=== PATIENT | female | born 1950 | race Caucasian/White ===

== ENCOUNTER 2019-08-21 13:01 | Inpatient (IN) | payer MEDICARE ==
[2019-08-21] MEDS ORDERED: Sodium Chloride 0.9% 10 ML Syringe FLUSH PRN (13:49)
[2019-08-21] MEDS ORDERED: HYDROmorphone 1 MG/ML Syringe IVPUSH ONE (13:50)
--- NOTE | 2019-08-21 13:54 | EDM.PDOC ---
ED HPI GENERAL MEDICAL PROBLEM - General Chief Complaint: Syncope Stated Complaint: [facility] Time Seen by Provider: 08/21/19 13:43 Source of Information: Reports: Patient, RN Notes Reviewed History Limitations: Reports: No Limitations - History of Present Illness INITIAL COMMENTS - FREE TEXT/NARRATIVE: 68-year-old female presents emergency department today via EMS services for increasing weakness and multiple falls she fell yesterday fell today she does have known history of pancreatic cancer undergoing chemotherapy usually gets chemotherapy every week unfortunately due to the current situation she has not had any chemotherapy for 3 weeks, complains of pain mainly low back pain no nausea no vomiting no difficulty breathing no chest pain, she is unsure of the 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 Pain Score (Numeric/FACES): 3 - Related Data Allergies Allergy/AdvReac Type Severity Reaction Status Date / Time No Known Allergies Allergy Verified 01/31/19 11:47 Home Meds: Home Meds Irinotecan HCl 500 mg IV ASDIRECTED 01/31/19 [History] Leucovorin Calcium 500 mg IJ ASDIRECTED 01/31/19 [History] Loperamide [Imodium AD] 2 mg PO ASDIRECTED 01/31/19 [History] Oxaliplatin [Eloxatin] 50 mg IV ASDIRECTED 01/31/19 [History] Prochlorperazine Maleate [Compazine] 10 mg PO QID PRN 01/31/19 [History] Apixaban [Eliquis] 5 mg PO BID 08/21/19 [History] Fluorouracil 5-Fu 1 dose IV ASDIRECTED 08/21/19 [History] Lipase/Protease/Amylase [Enzadyne Capsule] 1 each PO TID 08/21/19 [History] Metoclopramide HCl 5 mg PO TID 08/21/19 [History] Omeprazole [First-Omeprazole] 20 mg PO BID 08/21/19 [History] Pantoprazole Sodium [Protonix] 40 mg PO BID 08/21/19 [History] Sucralfate 10 ml PO QID 08/21/19 [History] dexAMETHasone [Dexamethasone] 8 mg PO ASDIRECTED 08/21/19 [History] oxyCODONE 5 mg PO Q4HR PRN 08/21/19 [History] Past Medical History Oncologic (Cancer) History: Reports: Pancreatic Social & Family History - Tobacco Use Smoking Status *Q: Current Every Day Smoker Years of Tobacco use: 40 Packs/Tins Daily: 0.5 - Caffeine Use Caffeine Use: Reports: Coffee - Recreational Drug Use Recreational Drug Use: Yes ED ROS GENERAL - Review of Systems Review Of Systems: See Below Constitutional: Reports: Weakness, Fatigue HEENT: Reports: No Symptoms Respiratory: Reports: No Symptoms Cardiovascular: Reports: No Symptoms GI/Abdominal: Reports: No Symptoms Musculoskeletal: Reports: Back Pain ED EXAM, GENERAL - Physical Exam Exam: See Below Exam Limited By: No Limitations General Appearance: Alert, Mild Distress Eye Exam: Bilateral Eye: Normal Inspection Nose: Other (Bruise with abrasion is appreciated on the bridge of the nose no septal hematoma is detected). No: Nasal Swelling Throat/Mouth: Normal Inspection, Normal Lips, Normal Teeth, Normal Gums, Normal Oropharynx, Normal Voice, No Airway Compromise Head: Normocephalic, Facial Tenderness Neck: Normal Inspection, Supple, Non-Tender, Full Range of Motion Respiratory/Chest: No Respiratory Distress, Lungs Clear, Normal Breath Sounds, No Accessory Muscle Use, Chest Non-Tender Cardiovascular: Regular Rate, Rhythm, No Murmur GI/Abdominal: Soft, Non-Tender Course - Vital Signs Last Recorded V/S: Last Vital Signs Temp 96.6 F L 08/21/19 15:49 Pulse 86 08/21/19 16:51 Resp 16 08/21/19 16:51 BP 84/59 L 08/21/19 16:51 Pulse Ox 94 L 08/21/19 16:51 - Orders/Labs/Meds Orders: Active Orders 24 hr Category Date Time Status Patient Status Manage Transfer [TRANSFER] Routine ADT 08/21/19 16:35 Active Peripheral IV Care [RC] . DIRECTED Care 08/21/19 13:50 Active CULTURE BLOOD [BC] Urgent Lab 08/21/19 14:40 Received CULTURE BLOOD [BC] Urgent Lab 08/21/19 14:50 Received UA W/MICROSCOPIC [URIN] Urgent Lab 08/21/19 13:49 Ordered Lactated Ringers [Ringers, Lactated] 1,000 ml Med 08/21/19 17:00 Active IV ASDIRECTED Norepinephrine [Levophed] 4 mg Med 08/21/19 16:30 Active Dextrose 5% in Water 246 ml IV TITRATE Sodium Chloride 0.9% [Saline Flush] Med 08/21/19 13:49 Active 10 ml FLUSH ASDIRECTED PRN metroNIDAZOLE/Normal Saline [Flagyl 500 MG in NS 100 ML Med 08/21/19 17:00 Active ] 500 mg Premix Bag 1 bag IV ONETIME Blood Culture x2 Reflex Set [OM.PC] Urgent Oth 08/21/19 14:35 Ordered Peripheral IV Insertion Adult [OM.PC] Urgent Oth 08/21/19 13:49 Ordered Severe Sepsis Onset Time [OM.PC] Stat Oth 08/21/19 14:35 Ordered Resuscitation Status Routine Resus Stat 08/21/19 16:39 Ordered Medication Orders Norepinephrine Bitartrate 4 mg (/ Dextrose/Water) 250 mls @ 7.5 mls/hr IV TITRATE PEPITO; Protocol Metronidazole 500 mg/ Premix 100 mls @ 100 mls/hr IV ONETIME ONE Stop: 08/21/19 17:59 Lactated Ringer's (Ringers, Lactated) 1,000 mls @ 500 mls/hr IV ASDIRECTED PEPITO Last Admin: 08/21/19 16:48 Dose: 500 mls/hr Sodium Chloride (Saline Flush) 10 ml FLUSH ASDIRECTED PRN PRN Reason: Keep Vein Open Last Admin: 08/21/19 14:34 Dose: 10 ml Labs: Laboratory Tests 08/21/19 08/21/19 08/21/19 Range/Units 13:40 13:54 13:54 WBC 29.2 H (4.5-11.0) K/uL RBC 3.40 (3.30-5.50) M/uL Hgb 11.1 L D (12.0-15.0) g/dL Hct 35.4 L (36.0-48.0) % MCV 104 H (80-98) fL MCH 33 H (27-31) pg MCHC 31 L (32-36) % Plt Count 71 L (150-400) K/uL Neut % (Auto) Accounting Professor Lymph % (Auto) Accounting Professor Wheeler % (Auto) Accounting Professor Eos % (Auto) Accounting Professor Baso % (Auto) Accounting Professor Add Manual Diff Yes Neutrophils % (Manual) 90 H (36-66) % Band Neutrophils % 4 L (5-11) % Lymphocytes % (Manual) 2 L (24-44) % Monocytes % (Manual) 4 (2-6) % Sodium 140 (140-148) mmol/L Potassium 2.0 L* (3.6-5.2) mmol/L Chloride 96 L (100-108) mmol/L Carbon Dioxide 24 (21-32) mmol/L Anion Gap 22.0 H (5.0-14.0) mmol/L BUN 61 H D (7-18) mg/dL Creatinine 2.3 H D (0.6-1.0) mg/dL Est Cr Clr Drug Dosing 16.76 mL/min Estimated GFR (MDRD) 21 L (>60) Glucose 122 H (74-106) mg/dL Lactic Acid (0.4-2.0) mmol/L Calcium 6.9 L* D (8.5-10.1) mg/dL Total Bilirubin 1.7 H D (0.2-1.0) mg/dL AST 45 H (15-37) U/L ALT 43 (12-78) U/L Alkaline Phosphatase 403 H D (46-116) U/L Troponin I 0.024 (0.000-0.056) ng/mL C-Reactive Protein 9.63 H (0.0-0.3) mg/dL Total Protein 5.1 L (6.4-8.2) g/dL Albumin 1.6 L (3.4-5.0) g/dL Globulin 3.5 (2.3-3.5) g/dL Albumin/Globulin Ratio 0.5 L (1.2-2.2) Procalcitonin ng/mL 08/21/19 08/21/19 Range/Units 13:54 14:50 WBC (4.5-11.0) K/uL RBC (3.30-5.50) M/uL Hgb (12.0-15.0) g/dL Hct (36.0-48.0) % MCV (80-98) fL MCH (27-31) pg MCHC (32-36) % Plt Count (150-400) K/uL Neut % (Auto) Lymph % (Auto) Wheeler % (Auto) Eos % (Auto) Baso % (Auto) Add Manual Diff Neutrophils % (Manual) (36-66) % Band Neutrophils % (5-11) % Lymphocytes % (Manual) (24-44) % Monocytes % (Manual) (2-6) % Sodium (140-148) mmol/L Potassium (3.6-5.2) mmol/L Chloride (100-108) mmol/L Carbon Dioxide (21-32) mmol/L Anion Gap (5.0-14.0) mmol/L BUN (7-18) mg/dL Creatinine (0.6-1.0) mg/dL Est Cr Clr Drug Dosing mL/min Estimated GFR (MDRD) (>60) Glucose (74-106) mg/dL Lactic Acid 13.3 H (0.4-2.0) mmol/L Calcium (8.5-10.1) mg/dL Total Bilirubin (0.2-1.0) mg/dL AST (15-37) U/L ALT (12-78) U/L Alkaline Phosphatase (46-116) U/L Troponin I (0.000-0.056) ng/mL C-Reactive Protein (0.0-0.3) mg/dL Total Protein (6.4-8.2) g/dL Albumin (3.4-5.0) g/dL Globulin (2.3-3.5) g/dL Albumin/Globulin Ratio (1.2-2.2) Procalcitonin 24.12 H* ng/mL Meds: Medications Generic Name Dose Route Start Last Admin Trade Name Freq PRN Reason Stop Dose Admin Norepinephrine Bitartrate 4 mg 250 mls @ 7.5 mls/hr 08/21/19 16:30 / Dextrose/Water IV TITRATE PEPITO Protocol 2 MCG/MIN Metronidazole 500 mg/ Premix 100 mls @ 100 mls/hr 08/21/19 17:00 IV 08/21/19 17:59 ONETIME ONE Lactated Ringer's 1,000 mls @ 500 mls/hr 08/21/19 17:00 08/21/19 16:48 Ringers, Lactated IV 500 mls/hr ASDIRECTED PEPITO Administration Sodium Chloride 10 ml 08/21/19 13:49 08/21/19 14:34 Saline Flush FLUSH 10 ml ASDIRECTED PRN Administration Keep Vein Open Discontinued Medications Generic Name Dose Route Start Last Admin Trade Name Freq PRN Reason Stop Dose Admin Hydrocortisone Sodium Succinate 100 mg 08/21/19 16:50 Solu-Cortef IVPUSH 08/21/19 16:51 ONETIME ONE Hydromorphone HCl 1 mg 08/21/19 13:50 08/21/19 14:19 Dilaudid IVPUSH 08/21/19 13:51 1 mg ONETIME ONE Administration Lactated Ringer's 1,000 mls @ 999 mls/hr 08/21/19 14:00 08/21/19 14:18 Ringers, Lactated IV 999 mls/hr ASDIRECTED PEPITO Administration Potassium Chloride 20 meq/ 100 mls @ 50 mls/hr 08/21/19 14:07 08/21/19 14:26 Premix IV 08/21/19 16:06 50 mls/hr ONETIME ONE Administration Piperacillin/Tazobactam/ 100 mls @ 200 mls/hr 08/21/19 15:00 08/21/19 15:16 Dextrose 4.5 gm/ Premix IV 08/21/19 15:29 200 mls/hr STAT ONE Administration Vancomycin HCl 1 gm/ Sodium 250 mls @ 167 mls/hr 08/21/19 15:30 08/21/19 15: 46 Chloride IV 08/21/19 16:59 167 mls/hr STAT ONE Administration Lactated Ringer's 1,000 mls @ 999 mls/hr 08/21/19 15:18 08/21/19 15:19 Ringers, Lactated IV 08/21/19 16:18 999 mls/hr BOLUS ONE Administration Potassium Chloride 40 meq 08/21/19 14:07 08/21/19 14:27 Klor-Con M20 PO 08/21/19 14:08 40 meq ONETIME ONE Administration Departure - Departure Time of Disposition: 17:10 Disposition: Admitted As Inpatient 66 Condition: Poor Clinical Impression: Adenocarcinoma of pancreas, stage 2, Anticoagulant long-term use Sepsis Qualifiers: Sepsis type: sepsis due to unspecified organism Sepsis acute organ dysfunction status: without acute organ dysfunction Qualified Code(s): A41.9 - Sepsis, unspecified organism - Discharge Information Referrals: Jean Browne MD [Primary Care Provider] - Forms: ED Department Discharge Critical Care Note - Critical Care Note Total Time (mins): 20 Sepsis Event Note - Evaluation Sepsis Screening Result: No Definite Risk - Focused Exam Vital Signs: Vital Signs Temp Pulse Resp BP Pulse Ox 08/21/19 16:51 86 16 84/59 L 94 L 08/21/19 16:17 87 18 76/44 L 94 L 08/21/19 15:49 96.6 F L 87 14 71/41 L 99 08/21/19 15:35 88 14 67/39 L 99 08/21/19 15:24 91 66/39 L 94 L 08/21/19 15:15 101 H 76/53 L 08/21/19 15:00 103 H 76/53 L 08/21/19 14:30 106 H 69/43 L 08/21/19 14:00 112 H 93/60 08/21/19 13:30 113 H 86/51 L 08/21/19 13:01 98.0 F 107 H 18 67/47 L 98 Date Exam was Performed: 08/21/19 Time Exam was Performed: 17:00 - My Orders Last 24 Hours: My Active Orders 08/21/19 13:49 UA W/MICROSCOPIC [URIN] Urgent Sodium Chloride 0.9% [Saline Flush] 10 ml FLUSH ASDIRECTED PRN Peripheral IV Insertion Adult [OM.PC] Urgent 08/21/19 13:50 Peripheral IV Care [RC] . DIRECTED 08/21/19 14:35 Blood Culture x2 Reflex Set [OM.PC] Urgent Severe Sepsis Onset Time [OM.PC] Stat 08/21/19 14:40 CULTURE BLOOD [BC] Urgent 08/21/19 14:50 CULTURE BLOOD [BC] Urgent - Assessment/Plan Last 24 Hours: My Active Orders 08/21/19 13:49 UA W/MICROSCOPIC [URIN] Urgent Sodium Chloride 0.9% [Saline Flush] 10 ml FLUSH ASDIRECTED PRN Peripheral IV Insertion Adult [OM.PC] Urgent 08/21/19 13:50 Peripheral IV Care [RC] . DIRECTED 08/21/19 14:35 Blood Culture x2 Reflex Set [OM.PC] Urgent Severe Sepsis Onset Time [OM.PC] Stat 08/21/19 14:40 CULTURE BLOOD [BC] Urgent 08/21/19 14:50 CULTURE BLOOD [BC] Urgent Plan: Assessment Acuity = acute Site and laterality = stage I adenocarcinoma the pancreas with metastases now suspicious for advancement to stage IV, concern for early development of sepsis Etiology = unknown Manifestations = weakness frequent falls Location of injury = Home Lab values = WBC elevated 29.9 consistent leukocytosis, hemoglobin low 11.1 consistent microchromic anemia potassium low 2.0 consistent with hypokalemia BUN elevated 2.3 consistent with acute renal failure stage G4 lactic acid elevated 13.3 consistent with lactic acidosis, similar at 6.9 consistent with hypocalcemia total bilirubin up at 1.7 consistent hyperbilirubinemia alk phos elevated 403 troponin in the normal range 0.024 CRP elevated 9.63 albumin is low at 1.6 consistent hypoalbuminemia procalcitonin markedly elevated at 24 CT scan does describe metastatic process in the liver probable source is the pancreas Plan Call discussed case with hospitalist on-call at 1530 he kindly agreed to come and evaluate the patient in the emergency department after CT scan was done This note was dictated using [employer] voice recognition software please call with any questions on syntax or grammar.
[2019-08-21] MEDS ORDERED: Lactated Ringers 1,000 ML IV SCH ×3 (14:00→17:06)
[2019-08-21] MEDS ORDERED: Potassium Chloride 20 MEQ in Premix Bag 1 BAG IV ONE (14:07)
[2019-08-21] MEDS ORDERED: Potassium Chloride 20 MEQ Tab.ER PO ONE ×3 (14:07→21:37)
[2019-08-21] MEDS ORDERED: Piperacillin/Tazobactam 4.5 GM in Sodium Chloride 0.9% 100 ML IV ONE (14:35)
[2019-08-21] MEDS ORDERED: Piperacillin/Tazobactam/Dext 4.5 GM in Premix Bag 1 BAG IV ONE (15:00)
[2019-08-21] MEDS ORDERED: Lactated Ringers 1,000 ML IV ONE (15:18)
--- NOTE | 2019-08-21 16:04 | CRLCT ---
INDICATION: Pancreatic cancer. Sepsis. TECHNIQUE: Contiguous axial CT images of the chest, abdomen, and pelvis are obtained without IV contrast. Coronal and sagittal reformations generated reviewed. COMPARISON: 04/23/2019. FINDINGS: Centrilobular emphysema, greatest in lung apices is similar to prior examination. 8 mm nodule in the lingula (series 5, image 54) unchanged. There is a 2.2 cm nodule in the medial aspect of the left upper lobe which is unchanged. No new or enlarging pulmonary nodules. No pulmonary opacities. Pleural spaces clear. Central airways are patent. Left chest port in place with tip in left brachiocephalic vein. Normal heart size. No pericardial effusion. There is no mediastinal lymphadenopathy. Normal course and caliber of the thoracic aorta. Normal caliber main pulmonary artery. Minimal coronary artery calcifications. The esophagus is unremarkable. Visualized portions of the thyroid are normal. On the prior exam with IV contrast, there are no definite liver lesions identified. However, on the current examination when placed in the narrow liver window, there are multiple areas suspicious for underlying liver lesions including a 2.2 cm lesion in the peripheral aspect of the right hepatic lobe (series 2, image 76) and a 2.0 cm lesion in the hepatic dome (series 2, image 69). Several other foci concerning for metastatic disease are also noted. Unchanged common bile duct stent and pneumobilia. There is a large cyst on the posterior aspect of the left kidney which is unchanged. The kidneys otherwise are unremarkable. There is no hydronephrosis or nephrolithiasis. Urinary bladder is distended but otherwise unremarkable. There is a small amount of fluid in the endometrium. Uterus otherwise unremarkable. There is atrophy of the pancreatic body and tail which is unchanged. Prominence in the pancreatic head is unchanged and suggests an underlying mass. Dense material is noted throughout the appendix which is not dilated and there is no inflammation directly adjacent to the appendix. Sigmoid diverticulosis. The descending colon and sigmoid colon are decompressed with extensive bowel wall thickening noted throughout. No other areas of bowel wall thickening are noted. There is no evidence of a bowel obstruction. Aortic atherosclerosis without aneurysm. There is no new inguinal, pelvic, or retroperitoneal lymphadenopathy. No definite periportal or peripancreatic adenopathy. There are no acute or aggressive osseous abnormalities identified. Degenerative changes in the lower lumbar spine. IMPRESSION: 1. Multiple new liver lesions concerning for progression of metastatic disease. These are not well evaluated without IV contrast. 2. Unchanged pneumobilia with biliary stent in place. 3. Unchanged atrophy of pancreatic body and tail and diffuse pancreatic ductal dilation. Presumed mass in pancreatic head. 4. Sigmoid diverticulosis. There is long segment wall thickening of the descending and sigmoid colon which could be due to underdistention, infectious colitis, or inflammatory bowel disease. 5. Unchanged emphysema. No evidence of superimposed pneumonia or other cause of fever in the chest. 6. Unchanged 2 cm left upper lobe nodule concerning for metastatic disease. 7. Left chest port placed. The tip of the tubing is in the left brachiocephalic vein. Please note that all CT scans at this facility use dose modulation, iterative reconstruction, and/or weight-based dosing when appropriate to reduce radiation dose to as low as reasonably achievable. Dictated by Nathaniel Corona MD @ Aug 21 2019 3:45PM Signed by Dr. Nathaniel Corona @ Aug 21 2019 4:03PM
[2019-08-21] MEDS ORDERED: Hydrocortisone Sodium Succinate 100 MG/2 ML SDV IVPUSH ONE (16:50)
[2019-08-21] MEDS: Norepinephrine 4 MG in Dextrose 5% in Water 246 ML IV SCH ×2 (16:52)
[2019-08-21] MEDS ORDERED: metroNIDAZOLE/Normal Saline 500 MG in Premix Bag 1 BAG IV ONE (17:00)
--- NOTE | 2019-08-21 17:02 | PCM.HP.2 ---
H&P History of Present Illness - General Date of Service: 08/21/19 Admit Problem/Dx: Admission Diagnosis/Problem Admission Diagnosis/Problem Septic shock Source of Information: Patient, Provider, RN Notes Reviewed History Limitations: Reports: No Limitations - History of Present Illness Initial Comments - Free Text/Narative: Ms. Harrell is a 68-year-old woman who was admitted through the emergency department with septic shock secondary to unidentified infection. She has a known history of metastatic pancreatic carcinoma and received her last dose of chemotherapy 3 weeks ago. She has been suffering with esophageal ulcers and has been unable to eat or drink much of anything over the past few months. She has become progressively more weak over the last month and over the last few days has had 2 falls where she was unable to get up. Because of her extreme weakness she was brought into the emergency department for further evaluation today. She has marked elevation in lactic acid level as well as procalcitonin. White blood cell count is significantly elevated and she has had significant hypotension while in the emergency department. Blood cultures have been obtained although we were unable to obtain cultures from her port as we were unable to draw blood from it. She has been given vigorous IV fluid replacement per sepsis protocol and despite this remains hypotensive. She has been started on IV norepinephrine in the emergency department and has been given a dose of Solu-Cortef. Broad-spectrum IV antibiotic therapy has been initiated; with vancomycin, Zosyn, and metronidazole. CT scan of the chest abdomen and pelvis was obtained, there are no obvious pulmonary infiltrates. Scan of the abdomen shows evidence of some thickening of the colon in the descending and sigmoid sections. She has had no diarrhea or bloody stools. There was evidence of mass at the pancreatic head with pancreatic ductal dilatation as well as metastatic disease to the liver. Denies significant abdominal pain or even much in the way of nausea. tail bone Pain Score (Numeric/FACES): 0 - Related Data Allergies/Adverse Reactions: Allergies Allergy/AdvReac Type Severity Reaction Status Date / Time No Known Allergies Allergy Verified 01/31/19 11:47 Home Medications: Home Meds Loperamide [Imodium AD] 2 mg PO ASDIRECTED 01/31/19 [History] Oxaliplatin [Eloxatin] 50 mg IV ASDIRECTED 01/31/19 [History] Prochlorperazine Maleate [Compazine] 10 mg PO QID PRN 01/31/19 [History] RX: Irinotecan HCl 500 mg IV ASDIRECTED 01/31/19 [History] RX: Leucovorin Calcium 500 mg IJ ASDIRECTED 01/31/19 [History] Apixaban [Eliquis] 5 mg PO BID 08/21/19 [History] Fluorouracil 5-Fu 1 dose IV ASDIRECTED 08/21/19 [History] Lipase/Protease/Amylase [Enzadyne Capsule] 1 each PO TID 08/21/19 [History] Omeprazole [First-Omeprazole] 20 mg PO BID 08/21/19 [History] Pantoprazole Sodium [Protonix] 40 mg PO BID 08/21/19 [History] RX: Metoclopramide HCl 5 mg PO TID 08/21/19 [History] RX: dexAMETHasone [Dexamethasone] 8 mg PO ASDIRECTED 08/21/19 [History] Sucralfate 10 ml PO QID 08/21/19 [History] oxyCODONE 5 mg PO Q4HR PRN 08/21/19 [History] Past Medical History Cardiovascular History: Reports: Blood Clots/VTE/DVT Respiratory History: Reports: COPD Gastrointestinal History: Reports: Other (See Below) Other Gastrointestinal History: Pancreatic cancer obstuctive jaundice Musculoskeletal History: Reports: Back Pain, Chronic Endocrine/Metabolic History: Reports: Hypomagnesemia Oncologic (Cancer) History: Reports: Pancreatic Other Oncologic History: 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 Denies: Fever, Chills HEENT: Reports: No Symptoms Pulmonary: Reports: No Symptoms Cardiovascular: Reports: No Symptoms Gastrointestinal: Reports: Difficulty Swallowing, Nausea. Denies: Abdominal Pain, Constipation, Diarrhea, Distension, Hematemesis, Hematochezia, Melena, Vomiting Genitourinary: Reports: No Symptoms Musculoskeletal: Reports: No Symptoms Skin: Reports: No Symptoms Psychiatric: Reports: No Symptoms Neurological: Reports: No Symptoms Hematologic/Lymphatic: Reports: No Symptoms Immunologic: Reports: No Symptoms Exam - Exam Exam: See Below - Vital Signs Vital Signs: Last Vital Signs Temp 96.6 F L 08/21/19 15:49 Pulse 86 08/21/19 16:51 Resp 16 08/21/19 16:51 BP 84/59 L 08/21/19 16:51 Pulse Ox 94 L 08/21/19 16:51 Weight: 100 lb - Exam Quality Assessment: Urinary Catheter, DVT Prophylaxis General: Alert, Oriented, Cooperative, Moderate Distress HEENT: Conjunctiva Clear, Hearing Intact, Normal Nasal Septum, Posterior Pharynx Clear, Pupils Equal. No: Mucosa Moist & [place] Neck: Supple, Trachea Midline, +2 Carotid Pulse wo Bruit Lungs: Clear to Auscultation, Normal Respiratory Effort, Decreased Breath Sounds. No: Rales, Rhonchi, Rub, Wheezing Cardiovascular: Regular Rate, Normal S1, Normal S2, Irregular Rhythm. No: Systolic Murmur, Diastolic Murmur GI/Abdominal Exam: Soft, Non-Tender, No Organomegaly, No Distention Back Exam: Normal Inspection, Full Range of Motion Extremities: Non-Tender, No Pedal Edema Skin: Warm, Dry, Intact Neurological: Cranial Nerves Intact, Strength Equal Bilateral, Normal Speech, Normal Tone, Sensation Intact. No: Focal Deficit Neuro Extensive - Mental Status: Alert, Oriented x3, Normal Mood/Affect, Normal Cognition, Memory Intact - Patient Data Lab Results Last 24 hrs: Laboratory Results - last 24 hr 08/21/19 08/21/19 08/21/19 Range/Units 13:40 13:54 13:54 WBC 29.2 H (4.5-11.0) K/uL RBC 3.40 (3.30-5.50) M/uL Hgb 11.1 L D (12.0-15.0) g/dL Hct 35.4 L (36.0-48.0) % MCV 104 H (80-98) fL MCH 33 H (27-31) pg MCHC 31 L (32-36) % Plt Count 71 L (150-400) K/uL Neut % (Auto) Home Office Claim Specialist Lymph % (Auto) Home Office Claim Specialist Reagan % (Auto) Home Office Claim Specialist Eos % (Auto) Home Office Claim Specialist Baso % (Auto) Home Office Claim Specialist Add Manual Diff Yes Neutrophils % (Manual) 90 H (36-66) % Band Neutrophils % 4 L (5-11) % Lymphocytes % (Manual) 2 L (24-44) % Monocytes % (Manual) 4 (2-6) % Sodium 140 (140-148) mmol/L Potassium 2.0 L* (3.6-5.2) mmol/L Chloride 96 L (100-108) mmol/L Carbon Dioxide 24 (21-32) mmol/L Anion Gap 22.0 H (5.0-14.0) mmol/L BUN 61 H D (7-18) mg/dL Creatinine 2.3 H D (0.6-1.0) mg/dL Est Cr Clr Drug Dosing 16.76 mL/min Estimated GFR (MDRD) 21 L (>60) Glucose 122 H (74-106) mg/dL Lactic Acid (0.4-2.0) mmol/L Calcium 6.9 L* D (8.5-10.1) mg/dL Total Bilirubin 1.7 H D (0.2-1.0) mg/dL AST 45 H (15-37) U/L ALT 43 (12-78) U/L Alkaline Phosphatase 403 H D (46-116) U/L Troponin I 0.024 (0.000-0.056) ng/mL C-Reactive Protein 9.63 H (0.0-0.3) mg/dL Total Protein 5.1 L (6.4-8.2) g/dL Albumin 1.6 L (3.4-5.0) g/dL Globulin 3.5 (2.3-3.5) g/dL Albumin/Globulin Ratio 0.5 L (1.2-2.2) Procalcitonin ng/mL 08/21/19 08/21/19 Range/Units 13:54 14:50 WBC (4.5-11.0) K/uL RBC (3.30-5.50) M/uL Hgb (12.0-15.0) g/dL Hct (36.0-48.0) % MCV (80-98) fL MCH (27-31) pg MCHC (32-36) % Plt Count (150-400) K/uL Neut % (Auto) Lymph % (Auto) [place] % (Auto) Eos % (Auto) Baso % (Auto) Add Manual Diff Neutrophils % (Manual) (36-66) % Band Neutrophils % (5-11) % Lymphocytes % (Manual) (24-44) % Monocytes % (Manual) (2-6) % Sodium (140-148) mmol/L Potassium (3.6-5.2) mmol/L Chloride (100-108) mmol/L Carbon Dioxide (21-32) mmol/L Anion Gap (5.0-14.0) mmol/L BUN (7-18) mg/dL Creatinine (0.6-1.0) mg/dL Est Cr Clr Drug Dosing mL/min Estimated GFR (MDRD) (>60) Glucose (74-106) mg/dL Lactic Acid 13.3 H (0.4-2.0) mmol/L Calcium (8.5-10.1) mg/dL Total Bilirubin (0.2-1.0) mg/dL AST (15-37) U/L ALT (12-78) U/L Alkaline Phosphatase (46-116) U/L Troponin I (0.000-0.056) ng/mL C-Reactive Protein (0.0-0.3) mg/dL Total Protein (6.4-8.2) g/dL Albumin (3.4-5.0) g/dL Globulin (2.3-3.5) g/dL Albumin/Globulin Ratio (1.2-2.2) Procalcitonin 24.12 H* ng/mL Result Diagrams: 08/21/19 13:54 08/21/19 13:54 Sepsis Event Note - Evaluation Sepsis Screening Result: No Definite Risk - Focused Exam Vital Signs: Vital Signs Temp Pulse Resp BP Pulse Ox 08/21/19 16:51 86 16 84/59 L 94 L 08/21/19 16:17 87 18 76/44 L 94 L 08/21/19 15:49 96.6 F L 87 14 71/41 L 99 08/21/19 15:35 88 14 67/39 L 99 08/21/19 15:24 91 66/39 L 94 L 08/21/19 15:15 101 H 76/53 L 08/21/19 15:00 103 H 76/53 L 08/21/19 14:30 106 H 69/43 L 08/21/19 14:00 112 H 93/60 08/21/19 13:30 113 H 86/51 L 08/21/19 13:01 98.0 F 107 H 18 67/47 L 98 Date Exam was Performed: 08/21/19 Time Exam was Performed: 16:57 *Q Meaningful Use (ADM) - VTE *Q VTE Pharmacological Contraindications *Q: High INR Value - VTE Risk Assess *Q Each Risk Factor Represents 1 Point: Abnormal Pulmonary Function (COPD) Total Score 1 Point Risk Factors: 1 Each Risk Factor Represents 2 Points: Age 60 - 74 Years, Malignancy (present or previous) Total Score 2 Point Risk Factors: 4 Each Risk Factor Represents 3 Points: None Total Score 3 Point Risk Factors: 0 Each Risk Factor Represents 5 Points: None Total Score 5 Point Risk Factors: 0 Venous Thromboembolism Risk Factor Score *Q: 5 Problem List Initiated/Reviewed/Updated: Yes Orders Last 24hrs: Active Orders 24 hr Category Date Time Status Patient Status Manage Transfer [TRANSFER] Routine ADT 08/21/19 16:35 Active Peripheral IV Care [RC] . DIRECTED Care 08/21/19 13:50 Active CULTURE BLOOD [BC] Urgent Lab 08/21/19 14:40 Received CULTURE BLOOD [BC] Urgent Lab 08/21/19 14:50 Received UA W/MICROSCOPIC [URIN] Urgent Lab 08/21/19 13:49 Ordered Lactated Ringers [Ringers, Lactated] 1,000 ml Med 08/21/19 17:00 Active IV ASDIRECTED Norepinephrine [Levophed] 4 mg Med 08/21/19 16:30 Active Dextrose 5% in Water 246 ml IV TITRATE Sodium Chloride 0.9% [Saline Flush] Med 08/21/19 13:49 Active 10 ml FLUSH ASDIRECTED PRN Vancomycin 1 gm Med 08/21/19 15:30 Active Sodium Chloride 0.9% [Normal Saline] 250 ml IV STAT metroNIDAZOLE/Normal Saline [Flagyl 500 MG in NS 100 ML Med 08/21/19 17:00 Active ] 500 mg Premix Bag 1 bag IV ONETIME Blood Culture x2 Reflex Set [OM.PC] Urgent Oth 08/21/19 14:35 Ordered Peripheral IV Insertion Adult [OM.PC] Urgent Oth 08/21/19 13:49 Ordered Severe Sepsis Onset Time [OM.PC] Stat Oth 08/21/19 14:35 Ordered Resuscitation Status Routine Resus Stat 08/21/19 16:39 Ordered Medication Orders Vancomycin HCl 1 gm/ Sodium (Chloride) 250 mls @ 167 mls/hr IV STAT ONE Stop: 08/21/19 16:59 Last Admin: 08/21/19 15:46 Dose: 167 mls/hr Norepinephrine Bitartrate 4 mg (/ Dextrose/Water) 250 mls @ 7.5 mls/hr IV TITRATE PEPITO; Protocol Metronidazole 500 mg/ Premix 100 mls @ 100 mls/hr IV ONETIME ONE Stop: 08/21/19 17:59 Lactated Ringer's (Ringers, Lactated) 1,000 mls @ 500 mls/hr IV ASDIRECTED PEPITO Last Admin: 08/21/19 16:48 Dose: 500 mls/hr Sodium Chloride (Saline Flush) 10 ml FLUSH ASDIRECTED PRN PRN Reason: Keep Vein Open Last Admin: 08/21/19 14:34 Dose: 10 ml Assessment/Plan Comment:: ASSESSMENT AND PLAN SEPTIC SHOCK-specific source of infection not yet identified. There is some question of possible colon thickening noted on CT scan. She does have a central line and this is obviously a potential source of infection, we were unable to draw blood from the port for blood cultures. Urinalysis is pending at the time of this dictation. Is received IV fluids per sepsis protocol, despite this remained hypotensive and has been started on IV norepinephrine as well as Solu-Cortef. Peripheral blood cultures have been obtained in the emergency department and she has been started on broad-spectrum IV antibiotic therapy with vancomycin, Zosyn, and metronidazole. She will be admitted to the intensive care unit for further management. -Solu-Cortef IV every 8 hours -IV antibiotic therapy as above; Zosyn, vancomycin, and metronidazole, pending culture results -IV norepinephrine to maintain mean arterial pressure of greater than 65 -Continue IV fluids -Reassess lactic acid level later this evening and in a.m. METASTATIC PANCREATIC CARCINOMA-chemotherapy is currently on hold ESOPHAGEAL ULCERS-secondary to chemotherapy -Continue current therapy with Carafate and PPI HYPOKALEMIA -IV and oral potassium replacement -Reassess potassium level later tonight and in a.m. -Cardiac monitoring ACUTE KIDNEY INJURY-likely secondary to hypotension and intravascular volume depletion -Closely monitor urine output and renal function -Mcmahon catheter placement to monitor urine output MAINTENANCE ISSUES -DVT prophylaxis; SCUDs, Eliquis -GI prophylaxis; Protonix -Mcmahon catheter; to closely monitor urine output -Nutrition; soft diet -Nicotine dependence; not required CODE STATUS-DNR/DNI ADMISSION STATUS-patient will be admitted to inpatient status, expect at least a 2 night hospital stay for evaluation and management of problems as outlined above. At the time of this admission I do not reasonably expected evaluation and management of this problem will require more than a 96 hour hospital stay. DISPOSITION-anticipate discharge to home after the hospital stay. PRIMARY CARE PROVIDER-she has been receiving oncology care in [place] - Mortality Measure Prognosis:: Poor
[2019-08-21] MEDS ORDERED: Acetaminophen 325 MG Tab PO PRN (17:06)
[2019-08-21] MEDS ORDERED: Ondansetron 4 MG/2 ML SDV IV PRN (17:06)
[2019-08-21] MEDS ORDERED: Polyethylene Glycol 3350 Powder 17 GM Packet PO PRN (17:06)
[2019-08-21] MEDS ORDERED: Vancomycin 1 GM SDV IV SCH (17:06)
[2019-08-21] MEDS: Pantoprazole 40 MG Vial IV SCH (18:09)
[2019-08-21] MEDS: oxyCODONE 5 MG Tab PO PRN (19:39)
[2019-08-21] MEDS: Lactated Ringers 1,000 ML IV SCH (20:44)
[2019-08-21] MEDS: Metoclopramide 10 MG Tab PO SCH ×2 (21:03→21:18)
[2019-08-21] MEDS: Amylase/Lipase/Protease 12,000 Unit Cap.CR PO SCH ×2 (21:03→21:05)
[2019-08-21] MEDS: Piperacillin/Tazobactam/Dext 2.25 GM in Premix Bag 1 BAG IV SCH (21:04)
[2019-08-21] MEDS: Sucralfate Suspension 1 GM/10 ML Cup PO SCH (21:04)
[2019-08-21] MEDS: Apixaban 5 MG Tab PO SCH (21:04)
[2019-08-21] MEDS ORDERED: POTASSIUM CHLORIDE RIDERS IV ONE (21:32)
[2019-08-21] MEDS: Potassium Chloride Riders 100 ML IV SCH (21:55)
[2019-08-22] MEDS: Hydrocortisone Sodium Succinate 100 MG/2 ML SDV IVPUSH SCH ×3 (00:37→18:21)
[2019-08-22] MEDS: Norepinephrine 4 MG in Dextrose 5% in Water 246 ML IV SCH ×6 (00:38→20:42)
[2019-08-22] MEDS: oxyCODONE 5 MG Tab PO PRN ×2 (00:45→16:39)
[2019-08-22] MEDS: metroNIDAZOLE/Normal Saline 500 MG in Premix Bag 1 BAG IV SCH ×3 (01:33→18:26)
[2019-08-22] MEDS: Potassium Chloride Riders 100 ML IV SCH (02:05)
[2019-08-22] MEDS: Lactated Ringers 1,000 ML IV SCH (05:29)
[2019-08-22] MEDS: Sucralfate Suspension 1 GM/10 ML Cup PO SCH ×4 (06:07→21:09)
[2019-08-22] MEDS: Piperacillin/Tazobactam/Dext 2.25 GM in Premix Bag 1 BAG IV SCH ×3 (06:08→21:07)
[2019-08-22] MEDS: Pantoprazole 40 MG Vial IV SCH ×2 (06:08→18:22)
[2019-08-22] MEDS ORDERED: Lactated Ringers 1,000 ML IV SCH (09:15)
--- NOTE | 2019-08-22 09:17 | PCM.PN ---
- General Info Date of Service: 08/22/19 Subjective Update: Ms. Harrell continues to require IV norepinephrine to maintain adequate blood pressure. Urine output remains low, likely secondary to acute kidney injury from hypotension. She has been afebrile, white count remains elevated. Continues to feel very weak and fatigued. - Review of Systems General: Reports: Weakness, Fatigue. Denies: Fever, Chills Pulmonary: Reports: No Symptoms Cardiovascular: Reports: No Symptoms Gastrointestinal: Reports: No Symptoms Genitourinary: Reports: No Symptoms - Patient Data Vitals - Most Recent: Last Vital Signs Temp 95.8 F L 08/22/19 07:00 Pulse 79 08/22/19 09:00 Resp 18 08/22/19 09:00 BP 113/86 08/22/19 09:00 Pulse Ox 99 08/22/19 09:00 Weight - Most Recent: 112 lb I&O - Last 24 Hours: Intake & Output 08/21/19 08/22/19 08/22/19 22:59 06:59 14:59 Intake Total 1135 2685 Output Total 430 50 18 Balance 705 2635 -18 Lab Results Last 24 Hours: Laboratory Results - last 24 hr 08/21/19 08/21/19 08/21/19 Range/Units 13:40 13:54 13:54 WBC 29.2 H (4.5-11.0) K/uL RBC 3.40 (3.30-5.50) M/uL Hgb 11.1 L D (12.0-15.0) g/dL Hct 35.4 L (36.0-48.0) % MCV 104 H (80-98) fL MCH 33 H (27-31) pg MCHC 31 L (32-36) % Plt Count 71 L (150-400) K/uL Neut % (Auto) Driller Hand Lymph % (Auto) Driller Hand Clayton % (Auto) [place] Hand Eos % (Auto) Dr[place] Hand Baso % (Auto) Driller Hand Add Manual Diff Yes Neutrophils % (Manual) 90 H (36-66) % Band Neutrophils % 4 L (5-11) % Lymphocytes % (Manual) 2 L (24-44) % Monocytes % (Manual) 4 (2-6) % Sodium 140 (140-148) mmol/L Potassium 2.0 L* (3.6-5.2) mmol/L Chloride 96 L (100-108) mmol/L Carbon Dioxide 24 (21-32) mmol/L Anion Gap 22.0 H (5.0-14.0) mmol/L BUN 61 H D (7-18) mg/dL Creatinine 2.3 H D (0.6-1.0) mg/dL Est Cr Clr Drug Dosing 16.76 mL/min Estimated GFR (MDRD) 21 L (>60) Glucose 122 H (74-106) mg/dL Lactic Acid (0.4-2.0) mmol/L Calcium 6.9 L* D (8.5-10.1) mg/dL POC WB Ioniz Calcium (1.12-1.32) mmol/L Magnesium (1.8-2.4) mg/dL Total Bilirubin 1.7 H D (0.2-1.0) mg/dL AST 45 H (15-37) U/L ALT 43 (12-78) U/L Alkaline Phosphatase 403 H D (46-116) U/L Troponin I 0.024 (0.000-0.056) ng/mL C-Reactive Protein 9.63 H (0.0-0.3) mg/dL Total Protein 5.1 L (6.4-8.2) g/dL Albumin 1.6 L (3.4-5.0) g/dL Globulin 3.5 (2.3-3.5) g/dL Albumin/Globulin Ratio 0.5 L (1.2-2.2) Procalcitonin ng/mL Urine Color (YELLOW) Urine Appearance (CLEAR) Urine pH (5.0-8.0) Ur Specific [place] (1.008-1.030) Urine Protein (NEGATIVE) mg/dL Urine Glucose (UA) (NEGATIVE) mg/dL Urine Ketones (NEGATIVE) mg/dL Urine Occult Blood (NEGATIVE) Urine Nitrite (NEGATIVE) Urine Bilirubin (NEGATIVE) Urine Urobilinogen (0.2-1.0) EU/dL Ur Leukocyte Esterase (NEGATIVE) Urine RBC (0-5) Urine WBC (0-5) Ur Epithelial Cells Amorphous Sediment Urine Bacteria Urine Mucus Urine Other 08/21/19 08/21/19 08/21/19 Range/Units 13:54 14:50 17:48 WBC (4.5-11.0) K/uL RBC (3.30-5.50) M/uL Hgb (12.0-15.0) g/dL Hct (36.0-48.0) % MCV (80-98) fL MCH (27-31) pg MCHC (32-36) % Plt Count (150-400) K/uL Neut % (Auto) Lymph % (Auto) Clayton % (Auto) Eos % (Auto) Baso % (Auto) Add Manual Diff Neutrophils % (Manual) (36-66) % Band Neutrophils % (5-11) % Lymphocytes % (Manual) (24-44) % Monocytes % (Manual) (2-6) % Sodium (140-148) mmol/L Potassium (3.6-5.2) mmol/L Chloride (100-108) mmol/L Carbon Dioxide (21-32) mmol/L Anion Gap (5.0-14.0) mmol/L BUN (7-18) mg/dL Creatinine (0.6-1.0) mg/dL Est Cr Clr Drug Dosing mL/min Estimated GFR (MDRD) (>60) Glucose (74-106) mg/dL Lactic Acid 13.3 H (0.4-2.0) mmol/L Calcium (8.5-10.1) mg/dL POC WB Ioniz Calcium (1.12-1.32) mmol/L Magnesium (1.8-2.4) mg/dL Total Bilirubin (0.2-1.0) mg/dL AST (15-37) U/L ALT (12-78) U/L Alkaline Phosphatase (46-116) U/L Troponin I (0.000-0.056) ng/mL C-Reactive Protein (0.0-0.3) mg/dL Total Protein (6.4-8.2) g/dL Albumin (3.4-5.0) g/dL Globulin (2.3-3.5) g/dL Albumin/Globulin Ratio (1.2-2.2) Procalcitonin 24.12 H* ng/mL Urine Color Yellow (YELLOW) Urine Appearance Slightly cloudy A (CLEAR) Urine pH 5.5 (5.0-8.0) Ur Specific [place] 1.015 (1.008-1.030) Urine Protein Negative (NEGATIVE) mg/dL Urine Glucose (UA) Negative (NEGATIVE) mg/dL Urine Ketones Negative (NEGATIVE) mg/dL Urine Occult Blood Negative (NEGATIVE) Urine Nitrite Negative (NEGATIVE) Urine Bilirubin Negative (NEGATIVE) Urine Urobilinogen 0.2 (0.2-1.0) EU/dL Ur Leukocyte Esterase Negative (NEGATIVE) Urine RBC 0-5 (0-5) Urine WBC 0-5 (0-5) Ur Epithelial Cells Rare Amorphous Sediment Few Urine Bacteria Moderate Urine Mucus Rare Urine Other 08/21/19 08/21/19 08/22/19 Range/Units 20:55 20:55 05:54 WBC (4.5-11.0) K/uL RBC (3.30-5.50) M/uL Hgb (12.0-15.0) g/dL Hct (36.0-48.0) % MCV (80-98) fL MCH (27-31) pg MCHC (32-36) % Plt Count (150-400) K/uL Neut % (Auto) Lymph % (Auto) Clayton % (Auto) Eos % (Auto) Baso % (Auto) Add Manual Diff Neutrophils % (Manual) (36-66) % Band Neutrophils % (5-11) % Lymphocytes % (Manual) (24-44) % Monocytes % (Manual) (2-6) % Sodium (140-148) mmol/L Potassium 2.3 L* (3.6-5.2) mmol/L Chloride (100-108) mmol/L Carbon Dioxide (21-32) mmol/L Anion Gap (5.0-14.0) mmol/L BUN (7-18) mg/dL Creatinine (0.6-1.0) mg/dL Est Cr Clr Drug Dosing mL/min Estimated GFR (MDRD) (>60) Glucose (74-106) mg/dL Lactic Acid 3.9 H 3.2 H (0.4-2.0) mmol/L Calcium (8.5-10.1) mg/dL POC WB Ioniz Calcium (1.12-1.32) mmol/L Magnesium (1.8-2.4) mg/dL Total Bilirubin (0.2-1.0) mg/dL AST (15-37) U/L ALT (12-78) U/L Alkaline Phosphatase (46-116) U/L Troponin I (0.000-0.056) ng/mL C-Reactive Protein (0.0-0.3) mg/dL Total Protein (6.4-8.2) g/dL Albumin (3.4-5.0) g/dL Globulin (2.3-3.5) g/dL Albumin/Globulin Ratio (1.2-2.2) Procalcitonin ng/mL Urine Color (YELLOW) Urine Appearance (CLEAR) Urine pH (5.0-8.0) Ur Specific [place] (1.008-1.030) Urine Protein (NEGATIVE) mg/dL Urine Glucose (UA) (NEGATIVE) mg/dL Urine Ketones (NEGATIVE) mg/dL Urine Occult Blood (NEGATIVE) Urine Nitrite (NEGATIVE) Urine Bilirubin (NEGATIVE) Urine Urobilinogen (0.2-1.0) EU/dL Ur Leukocyte Esterase (NEGATIVE) Urine RBC (0-5) Urine WBC (0-5) Ur Epithelial Cells Amorphous Sediment Urine Bacteria Urine Mucus Urine Other 08/22/19 08/22/19 08/22/19 Range/Units 05:54 05:54 08:53 WBC 29.8 H (4.5-11.0) K/uL RBC 2.73 L (3.30-5.50) M/uL Hgb 8.9 L D (12.0-15.0) g/dL Hct 27.8 L (36.0-48.0) % MCV 102 H (80-98) fL MCH 33 H (27-31) pg MCHC 32 (32-36) % Plt Count 88 L (150-400) K/uL Neut % (Auto) Lymph % (Auto) [place] % (Auto) Eos % (Auto) Baso % (Auto) Add Manual Diff Yes Neutrophils % (Manual) 94 H (36-66) % Band Neutrophils % (5-11) % Lymphocytes % (Manual) 4 L (24-44) % Monocytes % (Manual) 2 (2-6) % Sodium 134 L (140-148) mmol/L Potassium 5.5 H (3.6-5.2) mmol/L Chloride 102 (100-108) mmol/L Carbon Dioxide 26 (21-32) mmol/L Anion Gap 11.5 (5.0-14.0) mmol/L BUN 57 H (7-18) mg/dL Creatinine 1.9 H (0.6-1.0) mg/dL Est Cr Clr Drug Dosing TNP mL/min Estimated GFR (MDRD) 26 L (>60) Glucose 310 H (74-106) mg/dL Lactic Acid (0.4-2.0) mmol/L Calcium 6.5 L* (8.5-10.1) mg/dL POC WB Ioniz Calcium 0.85 L* (1.12-1.32) mmol/L Magnesium 1.0 L (1.8-2.4) mg/dL Total Bilirubin 1.0 (0.2-1.0) mg/dL AST 43 H (15-37) U/L ALT 42 (12-78) U/L Alkaline Phosphatase 328 H (46-116) U/L Troponin I (0.000-0.056) ng/mL C-Reactive Protein (0.0-0.3) mg/dL Total Protein 4.4 L (6.4-8.2) g/dL Albumin 1.3 L (3.4-5.0) g/dL Globulin 3.1 (2.3-3.5) g/dL Albumin/Globulin Ratio 0.4 L (1.2-2.2) Procalcitonin ng/mL Urine Color (YELLOW) Urine Appearance (CLEAR) Urine pH (5.0-8.0) Ur Specific [place] (1.008-1.030) Urine Protein (NEGATIVE) mg/dL Urine Glucose (UA) (NEGATIVE) mg/dL Urine Ketones (NEGATIVE) mg/dL Urine Occult Blood (NEGATIVE) Urine Nitrite (NEGATIVE) Urine Bilirubin (NEGATIVE) Urine Urobilinogen (0.2-1.0) EU/dL Ur Leukocyte Esterase (NEGATIVE) Urine RBC (0-5) Urine WBC (0-5) Ur Epithelial Cells Amorphous Sediment Urine Bacteria Urine Mucus Urine Other Med Orders - Current: Current Medications Acetaminophen (Tylenol) 650 mg PO Q4H PRN PRN Reason: Pain (Mild 1-3)/fever Lipase/Protease/Amylase (Creon Dr 12,000 Units) 2 cap PO TID [facility] Last Admin: 08/21/19 21:05 Dose: Not Given Apixaban (Eliquis) 5 mg PO BID [facility] Last Admin: 08/21/19 21:04 Dose: 5 mg Hydrocortisone Sodium Succinate (Solu-Cortef) 100 mg IVPUSH Q8H [facility] Last Admin: 08/22/19 00:37 Dose: 100 mg Norepinephrine Bitartrate 4 mg (/ Dextrose/Water) 250 mls @ 7.5 mls/hr IV TITRATE [facility]; Protocol Last Titration: 08/22/19 07:22 Dose: 8 mcg/min, 30 mls/hr Metronidazole 500 mg/ Premix 100 mls @ 100 mls/hr IV Q8H [facility] Last Admin: 08/22/19 01:33 Dose: 100 mls/hr Piperacillin/Tazobactam/ (Dextrose 2.25 gm/ Premix) 50 mls @ 100 mls/hr IV Q8H [facility] Last Admin: 08/22/19 06:08 Dose: 100 mls/hr Vancomycin HCl 1 gm/ Sodium (Chloride) 250 mls @ 167 mls/hr IV Q24H [facility] Calcium Gluconate 2 gm/ Sodium (Chloride) 120 mls @ 100 mls/hr IV ONETIME ONE Stop: 08/22/19 11:11 Calcium Gluconate 2 gm/ Sodium (Chloride) 120 mls @ 120 mls/hr IV ONETIME ONE Stop: 08/22/19 16:59 Lactated Ringer's (Ringers, Lactated) 1,000 mls @ 25 mls/hr IV ASDIRECTED [facility] Metoclopramide HCl (Reglan) 5 mg PO TID [facility] Last Admin: 08/21/19 21:18 Dose: Not Given Ondansetron HCl (Zofran) 4 mg IV Q4H PRN PRN Reason: Nausea/Vomiting Oxycodone HCl (Oxycodone) 5 mg PO Q4H PRN PRN Reason: Pain Last Admin: 08/22/19 00:45 Dose: 5 mg Pantoprazole Sodium (Protonix Iv) 40 mg IV Q12H [facility] Last Admin: 08/22/19 06:08 Dose: 40 mg Polyethylene Glycol (Miralax) 17 gm PO DAILY PRN PRN Reason: Constipation Sucralfate (Carafate) 1 gm PO QID [facility] Last Admin: 08/22/19 06:07 Dose: 1 gm Discontinued Medications Hydrocortisone Sodium Succinate (Solu-Cortef) 100 mg IVPUSH ONETIME ONE Stop: 08/21/19 16:51 Last Admin: 08/21/19 17:02 Dose: 100 mg Hydromorphone HCl (Dilaudid) 1 mg IVPUSH ONETIME ONE Stop: 08/21/19 13:51 Last Admin: 08/21/19 14:19 Dose: 1 mg Lactated Ringer's (Ringers, Lactated) 1,000 mls @ 999 mls/hr IV ASDIRECTED [facility] Last Admin: 08/21/19 14:18 Dose: 999 mls/hr Potassium Chloride 20 meq/ (Premix) 100 mls @ 50 mls/hr IV ONETIME ONE Stop: 08/21/19 16:06 Last Admin: 08/21/19 14:26 Dose: 50 mls/hr Piperacillin/Tazobactam/ (Dextrose 4.5 gm/ Premix) 100 mls @ 200 mls/hr IV STAT ONE Stop: 08/21/19 15:29 Last Admin: 08/21/19 15:16 Dose: 200 mls/hr Vancomycin HCl 1 gm/ Sodium (Chloride) 250 mls @ 167 mls/hr IV STAT ONE Stop: 08/21/19 16:59 Last Admin: 08/21/19 15:46 Dose: 167 mls/hr Lactated Ringer's (Ringers, Lactated) 1,000 mls @ 999 mls/hr IV BOLUS ONE Stop: 08/21/19 16:18 Last Admin: 08/21/19 15:19 Dose: 999 mls/hr Metronidazole 500 mg/ Premix 100 mls @ 100 mls/hr IV ONETIME ONE Stop: 08/21/19 17:59 Last Admin: 08/21/19 17:29 Dose: 100 mls/hr Lactated Ringer's (Ringers, Lactated) 1,000 mls @ 500 mls/hr IV ASDIRECTED [facility] Last Admin: 08/21/19 16:48 Dose: 500 mls/hr Lactated Ringer's (Ringers, Lactated) 1,000 mls @ 500 mls/hr IV ASDIRECTED [facility] Stop: 08/21/19 19:07 Last Admin: 08/21/19 18:42 Dose: 500 mls/hr Lactated Ringer's (Ringers, Lactated) 1,000 mls @ 125 mls/hr IV ASDIRECTED [facility] Last Admin: 08/22/19 05:29 Dose: 125 mls/hr Potassium Chloride 40 meq/ (Premix) 0 mls @ 25 mls/hr IV ONETIME ONE Stop: 08/21/19 21:33 Last Admin: 08/21/19 22:11 Dose: Not Given Potassium Chloride (Kcl 40 Meq In Water 100 Ml) 100 mls @ 25 mls/hr IV Q4H [facility] Stop: 08/22/19 05:59 Last Admin: 08/22/19 02:05 Dose: 25 mls/hr Potassium Chloride (Klor-Con M20) 40 meq PO ONETIME ONE Stop: 08/21/19 14:08 Last Admin: 08/21/19 14:27 Dose: 40 meq Potassium Chloride (Klor-Con M20) 40 meq PO ONETIME ONE Stop: 08/21/19 18:01 Last Admin: 08/21/19 18:09 Dose: 40 meq Potassium Chloride (Klor-Con M20) 40 meq PO ONETIME ONE Stop: 08/21/19 21:38 Last Admin: 08/21/19 21:56 Dose: 40 meq Sodium Chloride (Saline Flush) 10 ml FLUSH ASDIRECTED PRN PRN Reason: Keep Vein Open Last Admin: 08/21/19 14:34 Dose: 10 ml Vancomycin HCl (Vancomycin) 1 gm IV .PHARMACY TO DOSE [facility] Stop: 08/21/19 18:00 - Exam Quality Assessment: Central Line/PICC, Urine Catheter, DVT Prophylaxis General: Alert, Oriented, Cooperative, Moderate Distress Lungs: Clear to Auscultation, Normal Respiratory Effort Cardiovascular: Regular Rate, Regular Rhythm, No Murmurs GI/Abdominal Exam: Soft, Non-Tender, No Organomegaly, No Distention Extremities: Non-Tender, No Pedal Edema Sepsis Event Note - Evaluation Sepsis Screening Result: No Definite Risk - Focused Exam Vital Signs: Vital Signs Temp Pulse Resp BP BP Pulse Ox 08/22/19 09:00 79 18 113/86 99 08/22/19 08:00 67 20 106/67 99 08/22/19 07:00 95.8 F L 69 14 98/69 99 08/22/19 06:00 67 21 H 101/70 99 08/22/19 05:00 70 19 105/69 100 08/22/19 04:00 96.2 F L 73 19 104/67 100 08/22/19 03:00 77 16 99/68 99 08/22/19 02:00 82 15 106/67 99 08/22/19 01:00 78 19 94/63 100 08/22/19 00:00 96.1 F L 82 17 84/57 L 99 08/21/19 23:15 110/33 L 08/21/19 23:00 92 21 H 101/69 98 08/21/19 22:00 93 21 H 97/61 100 08/21/19 21:15 87 21 H 105/70 98 Date Exam was Performed: 08/22/19 Time Exam was Performed: 09:12 - Problem List Review Problem List Initiated/Reviewed/Updated: Yes - My Orders Last 24 Hours: My Active Orders 08/21/19 16:30 Norepinephrine [Levophed] 4 mg Dextrose 5% in Water 246 ml IV TITRATE 08/21/19 16:39 Resuscitation Status Routine 08/21/19 17:06 Patient Status [ADT] Routine Ambulate [RC] QID Cardiac Monitoring [RC] Q6H Height and Weight [RC] DAILY Insert Mcmahon Catheter [Insert Urinary Catheter] [OM.PC] Q24H Intake and Output [RC] QSHIFT Notify Provider Vital Signs [RC] ASDIRECTED Oxygen Therapy [RC] PRN Pulse Oximetry [RC] CONTINUOUS Up With Assistance [RC] ASDIRECTED Up to Chair [RC] QID Urinary Catheter Assessment [RC] ASDIRECTED VTE/DVT Education [RC] Per Unit Routine Vital Signs [RC] Q1H Acetaminophen [Tylenol] 650 mg PO Q4H PRN Ondansetron [Zofran] 4 mg IV Q4H PRN oxyCODONE 5 mg PO Q4H PRN polyethylene glycoL 3350 [MiraLAX] 17 gm PO DAILY PRN Sequential Compression Device [OM.PC] Per Unit Routine VTE Pharmacological Contraindications [AST] Per Unit Routine 08/21/19 18:00 Pantoprazole [ProTONIX IV] 40 mg IV Q12H 08/21/19 21:00 Amylase/Lipase/Protease [Russell MERLOS 12,000 Units] 2 cap PO TID Apixaban [Eliquis] 5 mg PO BID Metoclopramide [Reglan] 5 mg PO TID 08/21/19 22:00 Piperacillin/Tazobactam/Dext [Zosyn in Dextrose Iso-Osmotic] 2.25 gm Premix Bag 1 bag IV Q8H Sucralfate [Carafate] 1 gm PO QID 08/21/19 Lunch Mechanical Soft Diet [DIET] 08/22/19 01:00 Hydrocortisone Sod Succinate [Solu-CORTEF] 100 mg IVPUSH Q8H 08/22/19 02:00 metroNIDAZOLE/Normal Saline [Flagyl 500 MG in NS 100 ML] 500 mg Premix Bag 1 bag IV Q8H 08/22/19 09:06 Calcium Gluconate 2 gm Sodium Chloride 0.9% [Normal Saline] 100 ml IV ONETIME 08/22/19 09:15 Lactated Ringers [Ringers, Lactated] 1,000 ml IV ASDIRECTED 08/22/19 16:00 Calcium Gluconate 2 gm Sodium Chloride 0.9% [Normal Saline] 100 ml IV ONETIME 08/22/19 17:00 BASIC METABOLIC PANEL,BMP [CHEM] Stat 08/23/19 05:00 CALCIUM, IONIZED, SERUM Routine CBC WITH AUTO DIFF [HEME] Timed COMPREHENSIVE METABOLIC PN,CMP [CHEM] Timed MAGNESIUM [CHEM] Timed - Plan Plan:: ASSESSMENT AND PLAN SEPTIC SHOCK-specific source of infection not yet identified. There is some question of possible colon thickening noted on CT scan. She does have a central line and this is obviously a potential source of infection, we were unable to draw blood from the port for blood cultures. Continues to require IV norepinephrine to maintain adequate blood pressure. White blood cell count remains elevated, renal function compromised but stable. -Solu-Cortef IV every 8 hours -IV antibiotic therapy as above; Zosyn, vancomycin, and metronidazole, pending culture results -IV norepinephrine to maintain mean arterial pressure of greater than 65 -Continue IV fluids, increase rate to 25 cc/h METASTATIC PANCREATIC CARCINOMA-chemotherapy is currently on hold ESOPHAGEAL ULCERS-secondary to chemotherapy -Continue current therapy with Carafate and PPI HYPOKALEMIA-resolved -Reassess potassium level later today and in a.m. -Cardiac monitoring ACUTE KIDNEY INJURY-likely secondary to hypotension and intravascular volume depletion -Closely monitor urine output and renal function -Mcmahon catheter placement to monitor urine output MAINTENANCE ISSUES -DVT prophylaxis; SCUDs, Eliquis -GI prophylaxis; Protonix -Mcmahon catheter; to closely monitor urine output -Nutrition; soft diet -Nicotine dependence; not required CODE STATUS-DNR/DNI ADMISSION STATUS-patient will be admitted to inpatient status, expect at least a 2 night hospital stay and no more than a 96 hour hospital stay. DISPOSITION-anticipate discharge to home after the hospital stay. PRIMARY CARE PROVIDER-she has been receiving oncology care in [place]
[2019-08-22] MEDS ORDERED: Lidocaine 2% Viscous Solution 15 ML Cup MUCMEM PRN (09:40)
[2019-08-22] MEDS ORDERED: Calcium Gluconate 2 GM in Sodium Chloride 0.9% 100 ML IV ONE ×2 (10:00→16:00)
[2019-08-22] MEDS: Amylase/Lipase/Protease 12,000 Unit Cap.CR PO SCH ×3 (10:27→21:08)
[2019-08-22] MEDS: Metoclopramide 10 MG Tab PO SCH ×3 (10:27→21:08)
[2019-08-22] MEDS: Apixaban 5 MG Tab PO SCH ×2 (10:28→21:08)
[2019-08-22] MEDS: Nystatin Susp 100,000 Unit/ML 5 ML UD Cup PO SCH ×2 (16:18→21:09)
[2019-08-22] MEDS ORDERED: 50% Dextrose in Water 50 ML Syringe IV PRN (17:17)
[2019-08-22] MEDS ORDERED: Glucose Gel 15 GM in 37.5 GM Tube PO PRN (17:17)
[2019-08-22] MEDS ORDERED: Insulin Lispro 100 Unit/ML 3 ML KwikPen SUBCUT ONE (18:15)
[2019-08-22] MEDS: Insulin Lispro 100 Unit/ML 3 ML KwikPen SUBCUT SCH (21:07)
[2019-08-23] MEDS: Hydrocortisone Sodium Succinate 100 MG/2 ML SDV IVPUSH SCH (01:04)
[2019-08-23] MEDS: oxyCODONE 5 MG Tab PO PRN ×4 (01:04→20:07)
[2019-08-23] MEDS: metroNIDAZOLE/Normal Saline 500 MG in Premix Bag 1 BAG IV SCH ×2 (01:05→09:01)
[2019-08-23] MEDS: Pantoprazole 40 MG Vial IV SCH (05:31)
[2019-08-23] MEDS: Nystatin Susp 100,000 Unit/ML 5 ML UD Cup PO SCH ×4 (05:31→21:24)
[2019-08-23] MEDS: Sucralfate Suspension 1 GM/10 ML Cup PO SCH ×4 (05:31→21:24)
[2019-08-23] MEDS: Piperacillin/Tazobactam/Dext 2.25 GM in Premix Bag 1 BAG IV SCH ×3 (05:32→21:24)
[2019-08-23] MEDS ORDERED: Sodium Chloride 0.9% 1,000 ML IV SCH (06:30)
[2019-08-23] MEDS: Lactated Ringers 1,000 ML IV SCH (06:33)
[2019-08-23] MEDS: Insulin Lispro 100 Unit/ML 3 ML KwikPen SUBCUT SCH ×4 (08:20→21:12)
[2019-08-23] MEDS: Amylase/Lipase/Protease 12,000 Unit Cap.CR PO SCH ×3 (08:26→21:22)
[2019-08-23] MEDS: Metoclopramide 10 MG Tab PO SCH ×3 (08:27→21:22)
[2019-08-23] MEDS: Apixaban 5 MG Tab PO SCH ×2 (08:27→21:22)
[2019-08-23] MEDS: Magnesium Oxide 400 MG Tab PO SCH ×2 (08:54→21:22)
[2019-08-23] MEDS ORDERED: Calcium Gluconate 2 GM in Sodium Chloride 0.9% 100 ML IV ONE (09:00)
[2019-08-23] MEDS: Magnesium Sulfate/Water 2 GM in Premix Bag 1 BAG IV SCH ×3 (09:03→21:24)
--- NOTE | 2019-08-23 09:42 | PCM.PN ---
- General Info Date of Service: 08/23/19 Subjective Update: Ms. Harrell has shown further improvement over the last 24 hours. Continues to require IV norepinephrine to maintain blood pressure although level has slowly decreased and she is requiring less than yesterday. She is more alert and interactive and feels somewhat stronger. Oral intake is remained poor because of difficulty with swallowing and pain in her esophagus. Urine output remains fairly low but creatinine is down slightly from yesterday. Blood cultures are growing alpha strep. No other obvious source of infection is been identified in her central line remains the most likely source of current infection. Functional Status: Denies: Tolerating Diet - Review of Systems General: Reports: Weakness. Denies: Fever, Chills, Appetite Pulmonary: Reports: No Symptoms Cardiovascular: Reports: No Symptoms Gastrointestinal: Reports: No Symptoms - Patient Data Vitals - Most Recent: Last Vital Signs Temp 96.8 F L 08/23/19 01:00 Pulse 93 08/22/19 18:00 Resp 14 08/23/19 06:00 BP 122/85 08/23/19 06:00 Pulse Ox 98 08/23/19 06:00 Weight - Most Recent: 112 lb I&O - Last 24 Hours: Intake & Output 08/22/19 08/23/19 08/23/19 22:59 06:59 14:59 Intake Total 2034 652 Output Total 62 275 Balance 1972 377 Lab Results Last 24 Hours: Laboratory Results - last 24 hr 08/22/19 08/23/19 08/23/19 Range/Units 17:00 04:57 04:57 WBC 20.3 H (4.5-11.0) K/uL RBC 2.56 L (3.30-5.50) M/uL Hgb 8.4 L (12.0-15.0) g/dL Hct 26.1 L (36.0-48.0) % MCV 102 H (80-98) fL MCH 33 H (27-31) pg MCHC 32 (32-36) % Plt Count 107 L (150-400) K/uL Neut % (Auto) 93 H (36-66) % Lymph % (Auto) 4 L (24-44) % [place] % (Auto) 3 (2-6) % Eos % (Auto) 0 L (2-4) % Baso % (Auto) 0 (0-1) % Sodium 133 L (140-148) mmol/L Potassium 4.8 (3.6-5.2) mmol/L Chloride 99 L (100-108) mmol/L Carbon Dioxide 23 (21-32) mmol/L Anion Gap 15.8 H (5.0-14.0) mmol/L BUN 59 H (7-18) mg/dL Creatinine 2.3 H (0.6-1.0) mg/dL Est Cr Clr Drug Dosing 18.51 mL/min Estimated GFR (MDRD) 21 L (>60) Glucose 416 H* (74-106) mg/dL Lactic Acid (0.4-2.0) mmol/L Calcium 7.3 L (8.5-10.1) mg/dL POC WB Ioniz Calcium 1.06 L (1.12-1.32) mmol/L Magnesium (1.8-2.4) mg/dL Total Bilirubin (0.2-1.0) mg/dL AST (15-37) U/L ALT (12-78) U/L Alkaline Phosphatase (46-116) U/L Total Protein (6.4-8.2) g/dL Albumin (3.4-5.0) g/dL Globulin (2.3-3.5) g/dL Albumin/Globulin Ratio (1.2-2.2) 08/23/19 08/23/19 Range/Units 04:57 04:57 WBC (4.5-11.0) K/uL RBC (3.30-5.50) M/uL Hgb (12.0-15.0) g/dL Hct (36.0-48.0) % MCV (80-98) fL MCH (27-31) pg MCHC (32-36) % Plt Count (150-400) K/uL Neut % (Auto) (36-66) % Lymph % (Auto) (24-44) % [place] % (Auto) (2-6) % Eos % (Auto) (2-4) % Baso % (Auto) (0-1) % Sodium 132 L (140-148) mmol/L Potassium 4.3 (3.6-5.2) mmol/L Chloride 96 L (100-108) mmol/L Carbon Dioxide 25 (21-32) mmol/L Anion Gap 15.3 H (5.0-14.0) mmol/L BUN 57 H (7-18) mg/dL Creatinine 2.1 H (0.6-1.0) mg/dL Est Cr Clr Drug Dosing 20.28 mL/min Estimated GFR (MDRD) 23 L (>60) Glucose 237 H (74-106) mg/dL Lactic Acid 2.9 H (0.4-2.0) mmol/L Calcium 7.4 L (8.5-10.1) mg/dL POC WB Ioniz Calcium (1.12-1.32) mmol/L Magnesium 0.9 L (1.8-2.4) mg/dL Total Bilirubin 0.7 (0.2-1.0) mg/dL AST 22 (15-37) U/L ALT 37 (12-78) U/L Alkaline Phosphatase 306 H (46-116) U/L Total Protein 4.3 L (6.4-8.2) g/dL Albumin 1.2 L (3.4-5.0) g/dL Globulin 3.1 (2.3-3.5) g/dL Albumin/Globulin Ratio 0.4 L (1.2-2.2) Jovon Results Last 24 Hours: Microbiology 08/21/19 14:50 Aerobic Blood Culture - Final Blood - Venous - Lab Draw Alpha Strep, Not Pneumococcus Anaerobic Blood Culture - Final Alpha Strep, Not Pneumococcus 08/21/19 14:40 Aerobic Blood Culture - Final Blood - Venous Alpha Strep, Not Pneumococcus Anaerobic Blood Culture - Final Alpha Strep, Not Pneumococcus Med Orders - Current: Current Medications Acetaminophen (Tylenol) 650 mg PO Q4H PRN PRN Reason: Pain (Mild 1-3)/fever Lipase/Protease/Amylase (Russell Jin 12,000 Units) 2 cap PO TID [facility] Last Admin: 08/23/19 08:26 Dose: 2 cap Apixaban (Eliquis) 5 mg PO BID [facility] Last Admin: 08/23/19 08:27 Dose: 5 mg Dextrose (Glutose 15) 15 gm PO ONETIME PRN PRN Reason: Hypoglycemia Dextrose/Water (Dextrose 50% In Water) 50 ml IV ONETIME PRN PRN Reason: Hypoglycemia Norepinephrine Bitartrate 4 mg (/ Dextrose/Water) 250 mls @ 7.5 mls/hr IV TITRATE [facility]; Protocol Last Admin: 08/22/19 20:42 Dose: 5 mcg/min, 18.75 mls/hr Piperacillin/Tazobactam/ (Dextrose 2.25 gm/ Premix) 50 mls @ 100 mls/hr IV Q8H [facility] Last Admin: 08/23/19 05:32 Dose: 100 mls/hr Lactated Ringer's (Ringers, Lactated) 1,000 mls @ 25 mls/hr IV ASDIRECTED [facility] Last Admin: 08/23/19 06:33 Dose: 25 mls/hr Calcium Gluconate 2 gm/ Sodium (Chloride) 120 mls @ 100 mls/hr IV ONETIME ONE Stop: 08/23/19 10:11 Last Admin: 08/23/19 09:18 Dose: 100 mls/hr Magnesium Sulfate 2 gm/ Premix 50 mls @ 25 mls/hr IV Q6H [facility] Stop: 08/24/19 05:59 Last Admin: 08/23/19 09:03 Dose: 25 mls/hr Insulin Human Lispro (Humalog) 0 unit SUBCUT QIDACANDBED [facility]; Protocol Last Admin: 08/23/19 08:20 Dose: 2 units Lidocaine HCl (Xylocaine 2% Viscous) 15 ml MUCMEM ASDIRECTED PRN PRN Reason: MUCOUS MEMBRANE Last Admin: 08/22/19 10:00 Dose: 15 ml Magnesium Oxide (Magnesium Oxide) 400 mg PO BID [facility] Last Admin: 08/23/19 08:54 Dose: 400 mg Metoclopramide HCl (Reglan) 5 mg PO TID [facility] Last Admin: 08/23/19 08:27 Dose: 5 mg Nystatin (Mycostatin) 5 ml PO QID [facility] Last Admin: 08/23/19 09:21 Dose: 5 ml Ondansetron HCl (Zofran) 4 mg IV Q4H PRN PRN Reason: Nausea/Vomiting Oxycodone HCl (Oxycodone) 5 mg PO Q4H PRN PRN Reason: Pain Last Admin: 08/23/19 08:36 Dose: 5 mg Pantoprazole Sodium (Protonix Iv) 40 mg IV Q12H [facility] Last Admin: 08/23/19 05:31 Dose: 40 mg Polyethylene Glycol (Miralax) 17 gm PO DAILY PRN PRN Reason: Constipation Sucralfate (Carafate) 1 gm PO QID [facility] Last Admin: 08/23/19 09:02 Dose: 1 gm Discontinued Medications Hydrocortisone Sodium Succinate (Solu-Cortef) 100 mg IVPUSH ONETIME ONE Stop: 08/21/19 16:51 Last Admin: 08/21/19 17:02 Dose: 100 mg Hydrocortisone Sodium Succinate (Solu-Cortef) 100 mg IVPUSH Q8H [facility] Last Admin: 08/23/19 01:04 Dose: 100 mg Hydromorphone HCl (Dilaudid) 1 mg IVPUSH ONETIME ONE Stop: 08/21/19 13:51 Last Admin: 08/21/19 14:19 Dose: 1 mg Lactated Ringer's (Ringers, Lactated) 1,000 mls @ 999 mls/hr IV ASDIRECTED [facility] Last Admin: 08/21/19 14:18 Dose: 999 mls/hr Potassium Chloride 20 meq/ (Premix) 100 mls @ 50 mls/hr IV ONETIME ONE Stop: 08/21/19 16:06 Last Admin: 08/21/19 14:26 Dose: 50 mls/hr Piperacillin/Tazobactam/ (Dextrose 4.5 gm/ Premix) 100 mls @ 200 mls/hr IV STAT ONE Stop: 08/21/19 15:29 Last Admin: 08/21/19 15:16 Dose: 200 mls/hr Vancomycin HCl 1 gm/ Sodium (Chloride) 250 mls @ 167 mls/hr IV STAT ONE Stop: 08/21/19 16:59 Last Admin: 08/21/19 15:46 Dose: 167 mls/hr Lactated Ringer's (Ringers, Lactated) 1,000 mls @ 999 mls/hr IV BOLUS ONE Stop: 08/21/19 16:18 Last Admin: 08/21/19 15:19 Dose: 999 mls/hr Metronidazole 500 mg/ Premix 100 mls @ 100 mls/hr IV ONETIME ONE Stop: 08/21/19 17:59 Last Admin: 08/21/19 17:29 Dose: 100 mls/hr Lactated Ringer's (Ringers, Lactated) 1,000 mls @ 500 mls/hr IV ASDIRECTED [facility] Last Admin: 08/21/19 16:48 Dose: 500 mls/hr Lactated Ringer's (Ringers, Lactated) 1,000 mls @ 500 mls/hr IV ASDIRECTED [facility] Stop: 08/21/19 19:07 Last Admin: 08/21/19 18:42 Dose: 500 mls/hr Lactated Ringer's (Ringers, Lactated) 1,000 mls @ 125 mls/hr IV ASDIRECTED [facility] Last Admin: 08/22/19 05:29 Dose: 125 mls/hr Metronidazole 500 mg/ Premix 100 mls @ 100 mls/hr IV Q8H [facility] Last Admin: 08/23/19 09:01 Dose: 100 mls/hr Vancomycin HCl 1 gm/ Sodium (Chloride) 250 mls @ 167 mls/hr IV Q48H [facility] Potassium Chloride 40 meq/ (Premix) 0 mls @ 25 mls/hr IV ONETIME ONE Stop: 08/21/19 21:33 Last Admin: 08/21/19 22:11 Dose: Not Given Potassium Chloride (Kcl 40 Meq In Water 100 Ml) 100 mls @ 25 mls/hr IV Q4H [facility] Stop: 08/22/19 05:59 Last Admin: 08/22/19 02:05 Dose: 25 mls/hr Calcium Gluconate 2 gm/ Sodium (Chloride) 120 mls @ 100 mls/hr IV ONETIME ONE Stop: 08/22/19 11:11 Last Admin: 08/22/19 09:45 Dose: 100 mls/hr Calcium Gluconate 2 gm/ Sodium (Chloride) 120 mls @ 120 mls/hr IV ONETIME ONE Stop: 08/22/19 16:59 Last Admin: 08/22/19 16:17 Dose: 120 mls/hr Lactated Ringer's (Ringers, Lactated) 1,000 mls @ 25 mls/hr IV ASDIRECTED [facility] Last Admin: 08/23/19 05:34 Dose: 25 mls/hr Sodium Chloride (Normal Saline) 1,000 mls @ 125 mls/hr IV ASDIRECTED [facility] Insulin Human Lispro (Humalog) 8 unit SUBCUT ONETIME ONE Stop: 08/22/19 18:16 Last Admin: 08/22/19 18:19 Dose: 8 units Potassium Chloride (Klor-Con M20) 40 meq PO ONETIME ONE Stop: 08/21/19 14:08 Last Admin: 08/21/19 14:27 Dose: 40 meq Potassium Chloride (Klor-Con M20) 40 meq PO ONETIME ONE Stop: 08/21/19 18:01 Last Admin: 08/21/19 18:09 Dose: 40 meq Potassium Chloride (Klor-Con M20) 40 meq PO ONETIME ONE Stop: 08/21/19 21:38 Last Admin: 08/21/19 21:56 Dose: 40 meq Sodium Chloride (Saline Flush) 10 ml FLUSH ASDIRECTED PRN PRN Reason: Keep Vein Open Last Admin: 08/21/19 14:34 Dose: 10 ml Vancomycin HCl (Vancomycin) 1 gm IV .PHARMACY TO DOSE PEPITO Stop: 08/21/19 18:00 - Exam Quality Assessment: Central Line/PICC, Urine Catheter, DVT Prophylaxis General: Alert, Oriented, Cooperative, Mild Distress Lungs: Clear to Auscultation, Normal Respiratory Effort Cardiovascular: Regular Rate, Regular Rhythm, No Murmurs GI/Abdominal Exam: Soft, Non-Tender, No Organomegaly, No Distention Extremities: Non-Tender, No Pedal Edema Sepsis Event Note - Evaluation Sepsis Screening Result: No Definite Risk - Focused Exam Vital Signs: Vital Signs Temp Resp BP Pulse Ox 08/23/19 06:00 14 122/85 98 08/23/19 05:00 22 H 116/77 95 08/23/19 04:00 16 119/79 99 08/23/19 03:00 15 103/72 99 08/23/19 02:00 17 105/72 99 08/23/19 01:00 96.8 F L 20 102/71 98 08/23/19 00:00 21 H 106/76 99 08/22/19 23:00 18 107/73 99 08/22/19 22:00 24 H 102/72 100 Date Exam was Performed: 08/23/19 Time Exam was Performed: 09:38 - Problem List Review Problem List Initiated/Reviewed/Updated: Yes - My Orders Last 24 Hours: My Active Orders 08/22/19 09:40 Lidocaine 2% [Xylocaine 2% Viscous] 15 ml MUCMEM ASDIRECTED PRN 08/22/19 15:19 Consult to Physician [CONS] Routine 08/22/19 15:20 Notify Provider Consults [RC] ASDIRECTED 08/22/19 16:00 Nystatin [Mycostatin] 5 ml PO QID 08/22/19 17:17 Dextrose 50% in Water 50 ml IV ONETIME PRN Dextrose [Glutose 15] 15 gm PO ONETIME PRN 08/22/19 17:18 Blood Glucose Check, Bedside [RC] QIDACANDB Diabetes Education [RC] Click to Edit Notify Provider [RC] PRN 08/22/19 20:00 Insulin Lispro [HumaLOG] See Protocol SUBCUT QIDACANDBED 08/23/19 06:30 Lactated Ringers [Ringers, Lactated] 1,000 ml IV ASDIRECTED 08/23/19 09:00 Calcium Gluconate 2 gm Sodium Chloride 0.9% [Normal Saline] 100 ml IV ONETIME Magnesium Oxide 400 mg PO BID 08/23/19 10:00 Magnesium Sulfate/Water [Magnesium Sulfate in Water Premix] 2 gm Premix Bag 1 bag IV Q6H 08/24/19 05:00 CBC WITH AUTO DIFF [HEME] Timed COMPREHENSIVE METABOLIC PN,CMP [CHEM] Timed MAGNESIUM [CHEM] Timed 08/24/19 07:30 GLUCOSE POC LAB TO COLLECT [POC] QIDACANDBED 08/24/19 11:30 GLUCOSE POC LAB TO COLLECT [POC] QIDACANDBED 08/24/19 16:30 GLUCOSE POC LAB TO COLLECT [POC] QIDACANDBED 08/24/19 21:00 GLUCOSE POC LAB TO COLLECT [POC] QIDACANDBED 08/25/19 07:30 GLUCOSE POC LAB TO COLLECT [POC] QIDACANDBED 08/25/19 11:30 GLUCOSE POC LAB TO COLLECT [POC] QIDACANDBED 08/25/19 16:30 GLUCOSE POC LAB TO COLLECT [POC] QIDACANDBED 08/25/19 21:00 GLUCOSE POC LAB TO COLLECT [POC] QIDACANDBED 08/26/19 07:30 GLUCOSE POC LAB TO COLLECT [POC] QIDACANDBED 08/26/19 11:30 GLUCOSE POC LAB TO COLLECT [POC] QIDACANDBED 08/26/19 16:30 GLUCOSE POC LAB TO COLLECT [POC] QIDACANDBED 08/26/19 21:00 GLUCOSE POC LAB TO COLLECT [POC] QIDACANDBED 08/27/19 07:30 GLUCOSE POC LAB TO COLLECT [POC] QIDACANDBED 08/27/19 11:30 GLUCOSE POC LAB TO COLLECT [POC] QIDACANDBED 08/27/19 16:30 GLUCOSE POC LAB TO COLLECT [POC] QIDACANDBED - Plan Plan:: ASSESSMENT AND PLAN SEPTIC SHOCK-specific source of infection not yet identified. Most likely source of current infection is her central line. -Discontinue Solu-Cortef -IV antibiotic therapy; given current culture results will discontinue vancomycin and metronidazole, continue Zosyn -IV norepinephrine to maintain mean arterial pressure of greater than 65 -Continue IV fluids, decrease rate to 25 cc/h -We will of central line in a.m. by Dr. Comer METASTATIC PANCREATIC CARCINOMA-chemotherapy is currently on hold ESOPHAGEAL ULCERS-secondary to chemotherapy -Continue current therapy with Carafate and PPI -EGD in a.m. HYPOKALEMIA-resolved -Reassess potassium level later today and in a.m. -Cardiac monitoring ACUTE KIDNEY INJURY-likely secondary to hypotension and intravascular volume depletion. Output remains low, creatinine stable from yesterday -Closely monitor urine output and renal function -Mcmahon catheter placement to monitor urine output MAINTENANCE ISSUES -DVT prophylaxis; SCUDs, Eliquis -GI prophylaxis; Protonix -Mcmahon catheter; to closely monitor urine output -Nutrition; soft diet, nutritional supplements several times a day -Nicotine dependence; not required CODE STATUS-DNR/DNI ADMISSION STATUS-patient will be admitted to inpatient status, expect at least a 2 night hospital stay and no more than a 96 hour hospital stay. DISPOSITION-anticipate discharge to home after the hospital stay. PRIMARY CARE PROVIDER-she has been receiving oncology care in [place]
[2019-08-23] MEDS ORDERED: Glucose Gel 15 GM in 37.5 GM Tube PO PRN (15:20)
[2019-08-23] MEDS ORDERED: 50% Dextrose in Water 50 ML Syringe IV PRN (15:20)
[2019-08-23] MEDS ORDERED: Insulin Lispro 100 Unit/ML 3 ML KwikPen SUBCUT SCH (17:00)
[2019-08-23] MEDS ORDERED: Insulin Lispro 100 Unit/ML 3 ML KwikPen SUBCUT ONE (18:05)
[2019-08-23] MEDS: Pantoprazole 40 MG Delayed-Release Granules 1 Packet PO SCH (21:22)
[2019-08-24] MEDS: oxyCODONE 5 MG Tab PO PRN (00:14)
[2019-08-24] MEDS: Magnesium Sulfate/Water 2 GM in Premix Bag 1 BAG IV SCH (04:06)
[2019-08-24] MEDS: Nystatin Susp 100,000 Unit/ML 5 ML UD Cup PO SCH ×5 (05:31→21:26)
[2019-08-24] MEDS: Piperacillin/Tazobactam/Dext 2.25 GM in Premix Bag 1 BAG IV SCH (05:31)
[2019-08-24] MEDS: Sucralfate Suspension 1 GM/10 ML Cup PO SCH ×5 (05:31→21:26)
[2019-08-24] MEDS ORDERED: Bupivacaine 0.5% 50 ML MDV ONE (07:11)
[2019-08-24] MEDS ORDERED: Lidocaine 1% with EPINEPHrine 1:100,000 50 ML MDV ONE (07:11)
[2019-08-24] MEDS: Insulin Lispro 100 Unit/ML 3 ML KwikPen SUBCUT SCH ×4 (08:29→21:23)
--- NOTE | 2019-08-24 09:17 | PCM.PN ---
- General Info Date of Service: 08/24/19 Subjective Update: Ms. Harrell has shown further improvement since yesterday, now off of IV norepinephrine for blood pressure. Renal function not significantly improved but has not worsened. Swallowing very modestly improved, doing well with liquids but having difficulty with solids. White blood cell count has shown further improvement but is not yet normalized. Overall strength is improving. Functional Status: Reports: Ambulating. Denies: Tolerating Diet - Review of Systems General: Reports: Weakness, Fatigue. Denies: Fever, Chills Pulmonary: Reports: No Symptoms Cardiovascular: Reports: No Symptoms Gastrointestinal: Reports: No Symptoms - Patient Data Vitals - Most Recent: Last Vital Signs Temp 97.8 F 08/24/19 08:00 Pulse 96 08/24/19 06:00 Resp 16 08/24/19 08:00 BP 105/72 08/24/19 08:00 Pulse Ox 96 08/24/19 08:00 Weight - Most Recent: 122 lb 4 oz I&O - Last 24 Hours: Intake & Output 08/23/19 08/24/19 08/24/19 22:59 06:59 14:59 Intake Total 987 480 Output Total 225 195 Balance 762 285 Lab Results Last 24 Hours: Laboratory Results - last 24 hr 08/24/19 08/24/19 Range/Units 04:10 04:10 WBC 16.1 H (4.5-11.0) K/uL RBC 2.84 L (3.30-5.50) M/uL Hgb 9.3 L (12.0-15.0) g/dL Hct 28.6 L (36.0-48.0) % MCV 101 H (80-98) fL MCH 33 H (27-31) pg MCHC 33 (32-36) % Plt Count 94 L (150-400) K/uL Neut % (Auto) 85 H (36-66) % Lymph % (Auto) 10 L (24-44) % [place] % (Auto) 5 (2-6) % Eos % (Auto) 0 L (2-4) % Baso % (Auto) 0 (0-1) % Sodium 135 L (140-148) mmol/L Potassium 3.7 (3.6-5.2) mmol/L Chloride 102 (100-108) mmol/L Carbon Dioxide 28 (21-32) mmol/L Anion Gap 8.7 (5.0-14.0) mmol/L BUN 54 H (7-18) mg/dL Creatinine 2.0 H (0.6-1.0) mg/dL Est Cr Clr Drug Dosing 21.29 mL/min Estimated GFR (MDRD) 25 L (>60) Glucose 159 H (74-106) mg/dL Calcium 7.5 L (8.5-10.1) mg/dL Magnesium 2.5 H D (1.8-2.4) mg/dL Total Bilirubin 0.8 (0.2-1.0) mg/dL AST 32 (15-37) U/L ALT 43 (12-78) U/L Alkaline Phosphatase 429 H (46-116) U/L Total Protein 4.5 L (6.4-8.2) g/dL Albumin 1.4 L (3.4-5.0) g/dL Globulin 3.1 (2.3-3.5) g/dL Albumin/Globulin Ratio 0.5 L (1.2-2.2) Jovon Results Last 24 Hours: Microbiology 08/21/19 14:50 Aerobic Blood Culture - Final Blood - Venous - Lab Draw Alpha Strep, Not Pneumococcus Anaerobic Blood Culture - Final Alpha Strep, Not Pneumococcus 08/21/19 14:40 Aerobic Blood Culture - Final Blood - Venous Alpha Strep, Not Pneumococcus Anaerobic Blood Culture - Final Alpha Strep, Not Pneumococcus Med Orders - Current: Current Medications Acetaminophen (Tylenol) 650 mg PO Q4H PRN PRN Reason: Pain (Mild 1-3)/fever Lipase/Protease/Amylase (Russell Jin 12,000 Units) 2 cap PO TID [facility] Last Admin: 08/23/19 21:22 Dose: 2 cap Apixaban (Eliquis) 5 mg PO BID [facility] Last Admin: 08/23/19 21:22 Dose: 5 mg Dextrose (Glutose 15) 15 gm PO ONETIME PRN PRN Reason: Hypoglycemia Dextrose/Water (Dextrose 50% In Water) 50 ml IV ONETIME PRN PRN Reason: Hypoglycemia Lactated Ringer's (Ringers, Lactated) 1,000 mls @ 25 mls/hr IV ASDIRECTED [facility] Last Admin: 08/23/19 06:33 Dose: 25 mls/hr Ceftriaxone Sodium 1 gm/ (Sodium Chloride) 50 mls @ 100 mls/hr IV Q24H [facility] Insulin Human Lispro (Humalog) 0 unit SUBCUT QIDACANDBED [facility]; Protocol Last Admin: 08/24/19 08:29 Dose: 2 units Lactobacillus Rhamnosus (Culturelle) 1 cap PO BID [facility] Lidocaine HCl (Xylocaine 2% Viscous) 15 ml MUCMEM ASDIRECTED PRN PRN Reason: MUCOUS MEMBRANE Last Admin: 08/22/19 10:00 Dose: 15 ml Magnesium Oxide (Magnesium Oxide) 400 mg PO BID [facility] Last Admin: 08/23/19 21:22 Dose: 400 mg Metoclopramide HCl (Reglan) 5 mg PO TID [facility] Last Admin: 08/23/19 21:22 Dose: 5 mg Nystatin (Mycostatin) 5 ml PO QID [facility] Last Admin: 08/24/19 06:33 Dose: 5 ml Ondansetron HCl (Zofran) 4 mg IV Q4H PRN PRN Reason: Nausea/Vomiting Oxycodone HCl (Oxycodone) 5 mg PO Q4H PRN PRN Reason: Pain Last Admin: 08/24/19 00:14 Dose: 5 mg Pantoprazole Sodium (Protonix Granules) 40 mg PO BID [facility] Last Admin: 08/23/19 21:22 Dose: 40 mg Polyethylene Glycol (Miralax) 17 gm PO DAILY PRN PRN Reason: Constipation Last Admin: 08/23/19 13:36 Dose: 17 gm Sucralfate (Carafate) 1 gm PO QID [facility] Last Admin: 08/24/19 06:33 Dose: 1 gm Discontinued Medications Bupivacaine HCl (Marcaine 0.5%) Confirm Administered Dose 50 ml .ROUTE .STK-MED ONE Stop: 08/24/19 07:12 Hydrocortisone Sodium Succinate (Solu-Cortef) 100 mg IVPUSH ONETIME ONE Stop: 08/21/19 16:51 Last Admin: 08/21/19 17:02 Dose: 100 mg Hydrocortisone Sodium Succinate (Solu-Cortef) 100 mg IVPUSH Q8H [facility] Last Admin: 08/23/19 01:04 Dose: 100 mg Hydromorphone HCl (Dilaudid) 1 mg IVPUSH ONETIME ONE Stop: 08/21/19 13:51 Last Admin: 08/21/19 14:19 Dose: 1 mg Lactated Ringer's (Ringers, Lactated) 1,000 mls @ 999 mls/hr IV ASDIRECTED [facility] Last Admin: 08/21/19 14:18 Dose: 999 mls/hr Potassium Chloride 20 meq/ (Premix) 100 mls @ 50 mls/hr IV ONETIME ONE Stop: 08/21/19 16:06 Last Admin: 08/21/19 14:26 Dose: 50 mls/hr Piperacillin/Tazobactam/ (Dextrose 4.5 gm/ Premix) 100 mls @ 200 mls/hr IV STAT ONE Stop: 08/21/19 15:29 Last Admin: 08/21/19 15:16 Dose: 200 mls/hr Vancomycin HCl 1 gm/ Sodium (Chloride) 250 mls @ 167 mls/hr IV STAT ONE Stop: 08/21/19 16:59 Last Admin: 08/21/19 15:46 Dose: 167 mls/hr Lactated Ringer's (Ringers, Lactated) 1,000 mls @ 999 mls/hr IV BOLUS ONE Stop: 08/21/19 16:18 Last Admin: 08/21/19 15:19 Dose: 999 mls/hr Norepinephrine Bitartrate 4 mg (/ Dextrose/Water) 250 mls @ 7.5 mls/hr IV TITRATE [facility]; Protocol Last Admin: 08/22/19 20:42 Dose: 5 mcg/min, 18.75 mls/hr Metronidazole 500 mg/ Premix 100 mls @ 100 mls/hr IV ONETIME ONE Stop: 08/21/19 17:59 Last Admin: 08/21/19 17:29 Dose: 100 mls/hr Lactated Ringer's (Ringers, Lactated) 1,000 mls @ 500 mls/hr IV ASDIRECTED [facility] Last Admin: 08/21/19 16:48 Dose: 500 mls/hr Lactated Ringer's (Ringers, Lactated) 1,000 mls @ 500 mls/hr IV ASDIRECTED [facility] Stop: 08/21/19 19:07 Last Admin: 08/21/19 18:42 Dose: 500 mls/hr Lactated Ringer's (Ringers, Lactated) 1,000 mls @ 125 mls/hr IV ASDIRECTED [facility] Last Admin: 08/22/19 05:29 Dose: 125 mls/hr Metronidazole 500 mg/ Premix 100 mls @ 100 mls/hr IV Q8H [facility] Last Admin: 08/23/19 09:01 Dose: 100 mls/hr Piperacillin/Tazobactam/ (Dextrose 2.25 gm/ Premix) 50 mls @ 100 mls/hr IV Q8H [facility] Last Admin: 08/24/19 05:31 Dose: 100 mls/hr Vancomycin HCl 1 gm/ Sodium (Chloride) 250 mls @ 167 mls/hr IV Q48H [facility] Potassium Chloride 40 meq/ (Premix) 0 mls @ 25 mls/hr IV ONETIME ONE Stop: 08/21/19 21:33 Last Admin: 08/21/19 22:11 Dose: Not Given Potassium Chloride (Kcl 40 Meq In Water 100 Ml) 100 mls @ 25 mls/hr IV Q4H [facility] Stop: 08/22/19 05:59 Last Admin: 08/22/19 02:05 Dose: 25 mls/hr Calcium Gluconate 2 gm/ Sodium (Chloride) 120 mls @ 100 mls/hr IV ONETIME ONE Stop: 08/22/19 11:11 Last Admin: 08/22/19 09:45 Dose: 100 mls/hr Calcium Gluconate 2 gm/ Sodium (Chloride) 120 mls @ 120 mls/hr IV ONETIME ONE Stop: 08/22/19 16:59 Last Admin: 08/22/19 16:17 Dose: 120 mls/hr Lactated Ringer's (Ringers, Lactated) 1,000 mls @ 25 mls/hr IV ASDIRECTED [facility] Last Admin: 08/23/19 05:34 Dose: 25 mls/hr Sodium Chloride (Normal Saline) 1,000 mls @ 125 mls/hr IV ASDIRECTED [facility] Calcium Gluconate 2 gm/ Sodium (Chloride) 120 mls @ 100 mls/hr IV ONETIME ONE Stop: 08/23/19 10:11 Last Admin: 08/23/19 09:18 Dose: 100 mls/hr Magnesium Sulfate 2 gm/ Premix 50 mls @ 25 mls/hr IV Q6H [facility] Stop: 08/24/19 05:59 Last Admin: 08/24/19 04:06 Dose: 25 mls/hr Piperacillin/Tazobactam/ (Dextrose 2.25 gm/ Premix) 50 mls @ 100 mls/hr IV Q6H [facility] Insulin Human Lispro (Humalog) 0 unit SUBCUT QIDACANDBED [facility]; Protocol Last Admin: 08/23/19 13:16 Dose: 4 units Insulin Human Lispro (Humalog) 8 unit SUBCUT ONETIME ONE Stop: 08/22/19 18:16 Last Admin: 08/22/19 18:19 Dose: 8 units Insulin Human Lispro (Humalog) 0 unit SUBCUT QIDACANDBED [facility]; Protocol Insulin Human Lispro (Humalog) 12 unit SUBCUT ONETIME ONE Stop: 08/23/19 18:06 Last Admin: 08/23/19 18:23 Dose: 12 units Lidocaine/Epinephrine (Xylocaine 1% With Epinephrine 1:100,000) Confirm Administered Dose 50 ml .ROUTE .STK-MED ONE Stop: 08/24/19 07:12 Pantoprazole Sodium (Protonix Iv) 40 mg IV Q12H [facility] Last Admin: 08/23/19 05:31 Dose: 40 mg Potassium Chloride (Klor-Con M20) 40 meq PO ONETIME ONE Stop: 08/21/19 14:08 Last Admin: 08/21/19 14:27 Dose: 40 meq Potassium Chloride (Klor-Con M20) 40 meq PO ONETIME ONE Stop: 08/21/19 18:01 Last Admin: 08/21/19 18:09 Dose: 40 meq Potassium Chloride (Klor-Con M20) 40 meq PO ONETIME ONE Stop: 08/21/19 21:38 Last Admin: 08/21/19 21:56 Dose: 40 meq Sodium Chloride (Saline Flush) 10 ml FLUSH ASDIRECTED PRN PRN Reason: Keep Vein Open Last Admin: 08/21/19 14:34 Dose: 10 ml Vancomycin HCl (Vancomycin) 1 gm IV .PHARMACY TO DOSE [facility] Stop: 08/21/19 18:00 - Exam Quality Assessment: DVT Prophylaxis General: Alert, Oriented, Cooperative, Mild Distress Lungs: Clear to Auscultation, Normal Respiratory Effort Cardiovascular: Regular Rate, Regular Rhythm, No Murmurs GI/Abdominal Exam: Soft, Non-Tender, No Organomegaly, No Distention Extremities: Non-Tender, No Pedal Edema Sepsis Event Note - Evaluation Sepsis Screening Result: No Definite Risk - Focused Exam Vital Signs: Vital Signs Temp Pulse Resp BP Pulse Ox 08/24/19 08:00 97.8 F 16 105/72 96 08/24/19 06:00 96 15 109/72 95 08/24/19 04:00 96.0 F L 103 H 16 106/70 96 08/24/19 02:00 104 H 17 102/70 96 08/24/19 00:00 96.3 F L 108 H 21 H 101/75 97 08/23/19 22:00 108 H 25 H 107/80 98 Date Exam was Performed: 08/24/19 Time Exam was Performed: 09:12 - Problem List Review Problem List Initiated/Reviewed/Updated: Yes - My Orders Last 24 Hours: My Active Orders 08/23/19 09:00 Magnesium Oxide 400 mg PO BID 08/23/19 15:21 Communication Order [RC] STAT 08/23/19 17:00 Insulin Lispro [HumaLOG] See Protocol SUBCUT DACANDBED 08/23/19 21:00 Pantoprazole [ProTONIX Granules] 40 mg PO BID 08/24/19 09:07 Remove Mcmahon Catheter [Urinary Catheter Removal] [RC] Per Unit Routine 08/24/19 09:11 Consult to PICC Team [CONS] Routine Central Line PICC Insertion [Central Venous Line Insertion] [OM.PC] Routine 08/24/19 09:15 Lactobacillus Rhamnosus GG [Culturelle] 1 cap PO BID cefTRIAXone [Rocephin] 1 gm Sodium Chloride 0.9% [Normal Saline] 50 ml IV Q24H 08/25/19 05:00 CBC WITH AUTO DIFF [HEME] Timed COMPREHENSIVE METABOLIC PN,CMP [CHEM] Timed 08/25/19 07:30 GLUCOSE POC LAB TO COLLECT [POC] QIDACANDBED 08/25/19 11:30 GLUCOSE POC LAB TO COLLECT [POC] QIDACANDBED 08/25/19 16:30 GLUCOSE POC LAB TO COLLECT [POC] QIDACANDBED 08/25/19 21:00 GLUCOSE POC LAB TO COLLECT [POC] QIDACANDBED 08/26/19 07:30 GLUCOSE POC LAB TO COLLECT [POC] QIDACANDBED 08/26/19 11:30 GLUCOSE POC LAB TO COLLECT [POC] QIDACANDBED 08/26/19 16:30 GLUCOSE POC LAB TO COLLECT [POC] QIDACANDBED 08/26/19 21:00 GLUCOSE POC LAB TO COLLECT [POC] QIDACANDBED 08/27/19 07:30 GLUCOSE POC LAB TO COLLECT [POC] QIDACANDBED 08/27/19 11:30 GLUCOSE POC LAB TO COLLECT [POC] QIDACANDBED 08/27/19 16:30 GLUCOSE POC LAB TO COLLECT [POC] QIDACANDBED - Plan Plan:: ASSESSMENT AND PLAN SEPTIC SHOCK-Most likely source of current infection is her central line. -Discontinue Solu-Cortef -Ceftriaxone 1 g IV daily -PICC line placement after central line removal -Continue IV fluids, decrease rate to 25 cc/h -Central line removal and EGD this morning by Dr. Comer METASTATIC PANCREATIC CARCINOMA-chemotherapy is currently on hold ESOPHAGEAL ULCERS-secondary to chemotherapy -Continue current therapy with Carafate and PPI -EGD HYPOKALEMIA-resolved -Reassess potassium level later today and in a.m. -Cardiac monitoring ACUTE KIDNEY INJURY-likely secondary to hypotension and intravascular volume depletion. Output remains low, creatinine stable from yesterday -Closely monitor urine output and renal function -Remove Mcmahon catheter MAINTENANCE ISSUES -DVT prophylaxis; SCUDs, Eliquis -GI prophylaxis; Protonix -Mcmahon catheter; to closely monitor urine output -Nutrition; soft diet, nutritional supplements several times a day -Nicotine dependence; not required CODE STATUS-DNR/DNI ADMISSION STATUS-patient will be admitted to inpatient status, expect at least a 2 night hospital stay and no more than a 96 hour hospital stay. DISPOSITION-anticipate discharge to home after the hospital stay. PRIMARY CARE PROVIDER-she has been receiving oncology care in [place]
[2019-08-24] MEDS: cefTRIAXone 1 GM in Sodium Chloride 0.9% 50 ML IV SCH (09:52)
[2019-08-24] MEDS: Amylase/Lipase/Protease 12,000 Unit Cap.CR PO SCH ×3 (09:53→21:25)
[2019-08-24] MEDS: Metoclopramide 10 MG Tab PO SCH ×3 (09:53→21:26)
[2019-08-24] MEDS ORDERED: Midazolam 1 MG/ML 2 ML SDV ONE (10:50)
[2019-08-24] MEDS ORDERED: Propofol 200 MG/20 ML SDV ONE (10:50)
[2019-08-24] MEDS ORDERED: fentaNYL 100 MCG/2 ML SDV ONE (10:50)
[2019-08-24] MEDS: Apixaban 5 MG Tab PO SCH ×2 (11:19→21:26)
[2019-08-24] MEDS: Magnesium Oxide 400 MG Tab PO SCH ×2 (11:20→21:25)
[2019-08-24] MEDS: Pantoprazole 40 MG Delayed-Release Granules 1 Packet PO SCH ×2 (11:25→21:26)
[2019-08-24] MEDS: Lactobacillus Rhamnosus GG (Probiotic) Cap PO SCH ×2 (11:30→21:26)
[2019-08-24] MEDS: Lactated Ringers 1,000 ML IV SCH (11:55)
[2019-08-24] MEDS ORDERED: Piperacillin/Tazobactam/Dext 2.25 GM in Premix Bag 1 BAG IV SCH (12:00)
[2019-08-24] MEDS: Lidocaine 2% 60 ML, Alum Hydrox/Mag Hydrox/Simeth 360 ML PO PRN ×2 (15:11)
[2019-08-25] MEDS: Nystatin Susp 100,000 Unit/ML 5 ML UD Cup PO SCH ×4 (05:39→21:04)
[2019-08-25] MEDS: Sucralfate Suspension 1 GM/10 ML Cup PO SCH ×4 (05:39→21:04)
[2019-08-25] MEDS: Lidocaine 2% 60 ML, Alum Hydrox/Mag Hydrox/Simeth 360 ML PO PRN ×2 (08:26)
[2019-08-25] MEDS: Insulin Lispro 100 Unit/ML 3 ML KwikPen SUBCUT SCH ×4 (08:33→21:00)
[2019-08-25] MEDS: Amylase/Lipase/Protease 12,000 Unit Cap.CR PO SCH ×3 (08:40→20:55)
[2019-08-25] MEDS: Lactobacillus Rhamnosus GG (Probiotic) Cap PO SCH ×2 (08:44→20:55)
[2019-08-25] MEDS: Apixaban 5 MG Tab PO SCH ×2 (08:44→20:55)
[2019-08-25] MEDS: Magnesium Oxide 400 MG Tab PO SCH ×2 (08:45→20:55)
[2019-08-25] MEDS: Pantoprazole 40 MG Delayed-Release Granules 1 Packet PO SCH ×2 (08:46→20:55)
[2019-08-25] MEDS: Metoclopramide 10 MG Tab PO SCH ×3 (08:46→20:55)
--- NOTE | 2019-08-25 10:11 | PCM.PN ---
- General Info Date of Service: 08/25/19 Subjective Update: Ms. Harrell reports that she feels well today, appetite slowly improving and she is doing better with swallowing. Her port was removed yesterday by Dr. Comer without complication, EGD was performed which did show healing of her esophageal ulcers. Heart rate remains elevated is likely secondary to her severe deconditioning as it seems to go up with activity. Functional Status: Reports: Ambulating, Urinating - Review of Systems General: Reports: Weakness. Denies: Fever, Chills Pulmonary: Reports: No Symptoms Cardiovascular: Reports: No Symptoms Gastrointestinal: Reports: No Symptoms - Patient Data Vitals - Most Recent: Last Vital Signs Temp 96.9 F 08/25/19 08:00 Pulse 120 H 08/25/19 08:00 Resp 23 H 08/25/19 08:00 BP 100/77 08/25/19 08:00 Pulse Ox 95 08/25/19 08:00 Weight - Most Recent: 122 lb 4 oz I&O - Last 24 Hours: Intake & Output 08/24/19 08/25/19 08/25/19 22:59 06:59 14:59 Intake Total 120 320 Output Total 180 375 Balance -60 -55 Lab Results Last 24 Hours: Laboratory Results - last 24 hr 08/25/19 08/25/19 Range/Units 05:00 05:00 WBC 13.9 H (4.5-11.0) K/uL RBC 3.01 L (3.30-5.50) M/uL Hgb 9.7 L (12.0-15.0) g/dL Hct 30.7 L (36.0-48.0) % MCV 102 H (80-98) fL MCH 32 H (27-31) pg MCHC 32 (32-36) % Plt Count 90 L (150-400) K/uL Neut % (Auto) 79 H (36-66) % Lymph % (Auto) 13 L (24-44) % Stanley % (Auto) 8 H (2-6) % Eos % (Auto) 0 L (2-4) % Baso % (Auto) 0 (0-1) % Sodium 137 L (140-148) mmol/L Potassium 3.6 (3.6-5.2) mmol/L Chloride 103 (100-108) mmol/L Carbon Dioxide 27 (21-32) mmol/L Anion Gap 10.6 (5.0-14.0) mmol/L BUN 45 H (7-18) mg/dL Creatinine 1.7 H (0.6-1.0) mg/dL Est Cr Clr Drug Dosing 25.05 mL/min Estimated GFR (MDRD) 30 L (>60) Glucose 160 H (74-106) mg/dL Calcium 7.3 L (8.5-10.1) mg/dL Total Bilirubin 0.9 (0.2-1.0) mg/dL AST 58 H D (15-37) U/L ALT 51 (12-78) U/L Alkaline Phosphatase 543 H (46-116) U/L Total Protein 4.7 L (6.4-8.2) g/dL Albumin 1.5 L (3.4-5.0) g/dL Globulin 3.2 (2.3-3.5) g/dL Albumin/Globulin Ratio 0.5 L (1.2-2.2) Jovon Results Last 24 Hours: Microbiology 08/24/19 12:08 ELVA Preparation - Final Other - Esophagus 08/24/19 12:08 Gram Stain - Final Esophageal Sevier Respiratory Culture - Preliminary REDUCED NORMAL RESPIRATORY HEATHER 08/24/19 11:34 Gram Stain - Final Catheter Site - Other Wound Culture - Preliminary NO GROWTH AFTER 1 DAY Anaerobic Culture - Preliminary NO GROWTH AFTER 1 DAY 08/24/19 11:30 Gram Stain - Final Catheter Site - Other Wound Culture - Preliminary NO GROWTH AFTER 1 DAY Anaerobic Culture - Preliminary NO GROWTH AFTER 1 DAY Med Orders - Current: Current Medications Acetaminophen (Tylenol) 650 mg PO Q4H PRN PRN Reason: Pain (Mild 1-3)/fever Lipase/Protease/Amylase (Creon Dr 12,000 Units) 2 cap PO TID [facility] Last Admin: 08/25/19 08:40 Dose: 2 cap Apixaban (Eliquis) 5 mg PO BID [facility] Last Admin: 08/25/19 08:44 Dose: 5 mg Lidocaine HCl 60 ml/ Al (Hydroxide/Mg Hydroxide 360 ml) 0 ml PO TIDAC [facility] Dextrose (Glutose 15) 15 gm PO ONETIME PRN PRN Reason: Hypoglycemia Dextrose/Water (Dextrose 50% In Water) 50 ml IV ONETIME PRN PRN Reason: Hypoglycemia Ceftriaxone Sodium 1 gm/ (Sodium Chloride) 50 mls @ 100 mls/hr IV Q24H [facility] Last Admin: 08/24/19 09:52 Dose: 100 mls/hr Insulin Human Lispro (Humalog) 0 unit SUBCUT QIDACANDBED [facility]; Protocol Last Admin: 08/25/19 08:33 Dose: 2 units Lactobacillus Rhamnosus (Culturelle) 1 cap PO BID [facility] Last Admin: 08/25/19 08:44 Dose: 1 cap Lidocaine HCl (Xylocaine 2% Viscous) 15 ml MUCMEM ASDIRECTED PRN PRN Reason: MUCOUS MEMBRANE Last Admin: 08/22/19 10:00 Dose: 15 ml Magnesium Oxide (Magnesium Oxide) 400 mg PO BID [facility] Last Admin: 08/25/19 08:45 Dose: 400 mg Metoclopramide HCl (Reglan) 5 mg PO TID [facility] Last Admin: 08/25/19 08:46 Dose: 5 mg Nystatin (Mycostatin) 5 ml PO QID [facility] Last Admin: 08/25/19 05:39 Dose: 5 ml Ondansetron HCl (Zofran) 4 mg IV Q4H PRN PRN Reason: Nausea/Vomiting Oxycodone HCl (Oxycodone) 5 mg PO Q4H PRN PRN Reason: Pain Last Admin: 08/24/19 00:14 Dose: 5 mg Pantoprazole Sodium (Protonix Granules) 40 mg PO BID [facility] Last Admin: 08/25/19 08:46 Dose: 40 mg Polyethylene Glycol (Miralax) 17 gm PO DAILY PRN PRN Reason: Constipation Last Admin: 08/23/19 13:36 Dose: 17 gm Sucralfate (Carafate) 1 gm PO QID [facility] Last Admin: 08/25/19 05:39 Dose: 1 gm Discontinued Medications Bupivacaine HCl (Marcaine 0.5%) Confirm Administered Dose 50 ml .ROUTE .STK-MED ONE Stop: 08/24/19 07:12 Last Admin: 08/24/19 11:30 Dose: 10 ml Lidocaine HCl 60 ml/ Al (Hydroxide/Mg Hydroxide 360 ml) 0 ml PO ASDIRECTED PRN PRN Reason: PAIN Last Admin: 08/25/19 08:26 Dose: 30 ml Fentanyl (Sublimaze) Confirm Administered Dose 100 mcg .ROUTE .STK-MED ONE Stop: 08/24/19 10:51 Hydrocortisone Sodium Succinate (Solu-Cortef) 100 mg IVPUSH ONETIME ONE Stop: 08/21/19 16:51 Last Admin: 08/21/19 17:02 Dose: 100 mg Hydrocortisone Sodium Succinate (Solu-Cortef) 100 mg IVPUSH Q8H [facility] Last Admin: 08/23/19 01:04 Dose: 100 mg Hydromorphone HCl (Dilaudid) 1 mg IVPUSH ONETIME ONE Stop: 08/21/19 13:51 Last Admin: 08/21/19 14:19 Dose: 1 mg Lactated Ringer's (Ringers, Lactated) 1,000 mls @ 999 mls/hr IV ASDIRECTED [facility] Last Admin: 08/21/19 14:18 Dose: 999 mls/hr Potassium Chloride 20 meq/ (Premix) 100 mls @ 50 mls/hr IV ONETIME ONE Stop: 08/21/19 16:06 Last Admin: 08/21/19 14:26 Dose: 50 mls/hr Piperacillin/Tazobactam/ (Dextrose 4.5 gm/ Premix) 100 mls @ 200 mls/hr IV STAT ONE Stop: 08/21/19 15:29 Last Admin: 08/21/19 15:16 Dose: 200 mls/hr Vancomycin HCl 1 gm/ Sodium (Chloride) 250 mls @ 167 mls/hr IV STAT ONE Stop: 08/21/19 16:59 Last Admin: 08/21/19 15:46 Dose: 167 mls/hr Lactated Ringer's (Ringers, Lactated) 1,000 mls @ 999 mls/hr IV BOLUS ONE Stop: 08/21/19 16:18 Last Admin: 08/21/19 15:19 Dose: 999 mls/hr Norepinephrine Bitartrate 4 mg (/ Dextrose/Water) 250 mls @ 7.5 mls/hr IV TITRATE [facility]; Protocol Last Admin: 08/22/19 20:42 Dose: 5 mcg/min, 18.75 mls/hr Metronidazole 500 mg/ Premix 100 mls @ 100 mls/hr IV ONETIME ONE Stop: 08/21/19 17:59 Last Admin: 08/21/19 17:29 Dose: 100 mls/hr Lactated Ringer's (Ringers, Lactated) 1,000 mls @ 500 mls/hr IV ASDIRECTED [facility] Last Admin: 08/21/19 16:48 Dose: 500 mls/hr Lactated Ringer's (Ringers, Lactated) 1,000 mls @ 500 mls/hr IV ASDIRECTED [facility] Stop: 08/21/19 19:07 Last Admin: 08/21/19 18:42 Dose: 500 mls/hr Lactated Ringer's (Ringers, Lactated) 1,000 mls @ 125 mls/hr IV ASDIRECTED [facility] Last Admin: 08/22/19 05:29 Dose: 125 mls/hr Metronidazole 500 mg/ Premix 100 mls @ 100 mls/hr IV Q8H [facility] Last Admin: 08/23/19 09:01 Dose: 100 mls/hr Piperacillin/Tazobactam/ (Dextrose 2.25 gm/ Premix) 50 mls @ 100 mls/hr IV Q8H [facility] Last Admin: 08/24/19 05:31 Dose: 100 mls/hr Vancomycin HCl 1 gm/ Sodium (Chloride) 250 mls @ 167 mls/hr IV Q48H [facility] Potassium Chloride 40 meq/ (Premix) 0 mls @ 25 mls/hr IV ONETIME ONE Stop: 08/21/19 21:33 Last Admin: 08/21/19 22:11 Dose: Not Given Potassium Chloride (Kcl 40 Meq In Water 100 Ml) 100 mls @ 25 mls/hr IV Q4H [facility] Stop: 08/22/19 05:59 Last Admin: 08/22/19 02:05 Dose: 25 mls/hr Calcium Gluconate 2 gm/ Sodium (Chloride) 120 mls @ 100 mls/hr IV ONETIME ONE Stop: 08/22/19 11:11 Last Admin: 08/22/19 09:45 Dose: 100 mls/hr Calcium Gluconate 2 gm/ Sodium (Chloride) 120 mls @ 120 mls/hr IV ONETIME ONE Stop: 08/22/19 16:59 Last Admin: 08/22/19 16:17 Dose: 120 mls/hr Lactated Ringer's (Ringers, Lactated) 1,000 mls @ 25 mls/hr IV ASDIRECTED [facility] Last Admin: 08/23/19 05:34 Dose: 25 mls/hr Sodium Chloride (Normal Saline) 1,000 mls @ 125 mls/hr IV ASDIRECTED [facility] Lactated Ringer's (Ringers, Lactated) 1,000 mls @ 25 mls/hr IV ASDIRECTED [facility] Last Admin: 08/24/19 11:55 Dose: 25 mls/hr Calcium Gluconate 2 gm/ Sodium (Chloride) 120 mls @ 100 mls/hr IV ONETIME ONE Stop: 08/23/19 10:11 Last Admin: 08/23/19 09:18 Dose: 100 mls/hr Magnesium Sulfate 2 gm/ Premix 50 mls @ 25 mls/hr IV Q6H [facility] Stop: 08/24/19 05:59 Last Admin: 08/24/19 04:06 Dose: 25 mls/hr Piperacillin/Tazobactam/ (Dextrose 2.25 gm/ Premix) 50 mls @ 100 mls/hr IV Q6H [facility] Insulin Human Lispro (Humalog) 0 unit SUBCUT QIDACANDBED [facility]; Protocol Last Admin: 08/23/19 13:16 Dose: 4 units Insulin Human Lispro (Humalog) 8 unit SUBCUT ONETIME ONE Stop: 08/22/19 18:16 Last Admin: 08/22/19 18:19 Dose: 8 units Insulin Human Lispro (Humalog) 0 unit SUBCUT QIDACANDBED [facility]; Protocol Insulin Human Lispro (Humalog) 12 unit SUBCUT ONETIME ONE Stop: 08/23/19 18:06 Last Admin: 08/23/19 18:23 Dose: 12 units Lidocaine/Epinephrine (Xylocaine 1% With Epinephrine 1:100,000) Confirm Administered Dose 50 ml .ROUTE .STK-MED ONE Stop: 08/24/19 07:12 Last Admin: 08/24/19 11:30 Dose: 10 ml Midazolam HCl (Versed 1 Mg/Ml) Confirm Administered Dose 2 mg .ROUTE .STK-MED ONE Stop: 08/24/19 10:51 Pantoprazole Sodium (Protonix Iv) 40 mg IV Q12H [facility] Last Admin: 08/23/19 05:31 Dose: 40 mg Potassium Chloride (Klor-Con M20) 40 meq PO ONETIME ONE Stop: 08/21/19 14:08 Last Admin: 08/21/19 14:27 Dose: 40 meq Potassium Chloride (Klor-Con M20) 40 meq PO ONETIME ONE Stop: 08/21/19 18:01 Last Admin: 08/21/19 18:09 Dose: 40 meq Potassium Chloride (Klor-Con M20) 40 meq PO ONETIME ONE Stop: 08/21/19 21:38 Last Admin: 08/21/19 21:56 Dose: 40 meq Propofol (Diprivan 20 Ml) Confirm Administered Dose 200 mg .ROUTE .STK-MED ONE Stop: 08/24/19 10:51 Sodium Chloride (Saline Flush) 10 ml FLUSH ASDIRECTED PRN PRN Reason: Keep Vein Open Last Admin: 08/21/19 14:34 Dose: 10 ml Vancomycin HCl (Vancomycin) 1 gm IV .PHARMACY TO DOSE [facility] Stop: 08/21/19 18:00 - Exam Quality Assessment: Central Line/PICC, DVT Prophylaxis. No: Urine Catheter General: Alert, Oriented, Cooperative, No Acute Distress Lungs: Clear to Auscultation, Normal Respiratory Effort Cardiovascular: Regular Rate, Regular Rhythm, No Murmurs GI/Abdominal Exam: Soft, Non-Tender, No Organomegaly, No Distention Extremities: Non-Tender, No Pedal Edema Sepsis Event Note - Evaluation Sepsis Screening Result: Severe Sepsis Risk - Focused Exam Vital Signs: Vital Signs Temp Pulse Resp BP Pulse Ox 08/25/19 08:00 96.9 F 120 H 23 H 100/77 95 08/25/19 06:00 22 H 112/79 99 08/25/19 04:00 96.8 F L 20 99/70 98 08/25/19 02:00 17 99/72 96 08/25/19 00:00 96.9 F 20 110/83 96 Date Exam was Performed: 08/25/19 Time Exam was Performed: 10:08 - Problem List Review Problem List Initiated/Reviewed/Updated: Yes - My Orders Last 24 Hours: My Active Orders 08/24/19 09:11 Consult to PICC Team [CONS] Routine Central Line PICC Insertion [Central Venous Line Insertion] [OM.PC] Routine 08/24/19 09:15 Lactobacillus Rhamnosus GG [Culturelle] 1 cap PO BID 08/24/19 10:00 cefTRIAXone [Rocephin] 1 gm Sodium Chloride 0.9% [Normal Saline] 50 ml IV Q24H 08/24/19 12:19 PT Evaluation and Treatment [CONS] Routine 08/25/19 05:30 Insert Urinary Catheter [OM.PC] Q24H 08/25/19 08:18 Convert IV to Saline Lock [OM.PC] Routine 08/25/19 10:03 Patient Status [ADT] Routine 08/25/19 10:04 Discontinue Telemetry Monitoring [Cardiac Monitoring Discontinue] [RC] Click to Edit 08/26/19 05:00 BASIC METABOLIC PANEL,BMP [CHEM] Timed CBC WITH AUTO DIFF [HEME] Timed 08/26/19 07:30 GLUCOSE POC LAB TO COLLECT [POC] QIDACANDBED 08/26/19 11:30 GLUCOSE POC LAB TO COLLECT [POC] QIDACANDBED 08/26/19 16:30 GLUCOSE POC LAB TO COLLECT [POC] QIDACANDBED 08/26/19 21:00 GLUCOSE POC LAB TO COLLECT [POC] QIDACANDBED 08/27/19 07:30 GLUCOSE POC LAB TO COLLECT [POC] QIDACANDBED 08/27/19 11:30 GLUCOSE POC LAB TO COLLECT [POC] QIDACANDBED 08/27/19 16:30 GLUCOSE POC LAB TO COLLECT [POC] QIDACANDBED - Plan Plan:: ASSESSMENT AND PLAN SEPTIC SHOCK-resolved and her central line has been removed. Alpha strep cultured from blood, current plan is for discharged home tomorrow. PICC line has been placed and she will receive an additional 5 days of IV antibiotic therapy. 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 -Continue current therapy with Carafate and PPI HYPOKALEMIA-resolved ACUTE KIDNEY INJURY-likely secondary to hypotension and intravascular volume depletion. Renal function continues to slowly improve -Closely monitor urine output and renal function MAINTENANCE ISSUES -DVT prophylaxis; SCUDs, Eliquis -GI prophylaxis; Protonix -Mcmahon catheter; to closely monitor urine output -Nutrition; soft diet, nutritional supplements several times a day -Nicotine dependence; not required CODE STATUS-DNR/DNI ADMISSION STATUS-patient will be admitted to inpatient status, expect at least a 2 night hospital stay and no more than a 96 hour hospital stay. DISPOSITION-anticipate discharge to home after the hospital stay. PRIMARY CARE PROVIDER-she has been receiving oncology care in [place]
[2019-08-25] MEDS: cefTRIAXone 1 GM in Sodium Chloride 0.9% 50 ML IV SCH (10:45)
[2019-08-25] MEDS ORDERED: Lidocaine 2% 60 ML, Alum Hydrox/Mag Hydrox/Simeth 360 ML PO PRN ×2 (10:53)
[2019-08-25] MEDS: Lidocaine 2% 60 ML, Alum Hydrox/Mag Hydrox/Simeth 360 ML PO SCH ×4 (11:34→17:16)
[2019-08-25] MEDS: oxyCODONE 5 MG Tab PO PRN ×2 (11:48→16:02)
[2019-08-25] MEDS ORDERED: Melatonin 3 MG Tab PO SCH (21:00)
[2019-08-26] MEDS ORDERED: Potassium Chloride 20 MEQ in Premix Bag 1 BAG IV ONE ×2 (05:34→07:35)
[2019-08-26] MEDS: Sucralfate Suspension 1 GM/10 ML Cup PO SCH ×2 (05:56→09:46)
[2019-08-26] MEDS: Nystatin Susp 100,000 Unit/ML 5 ML UD Cup PO SCH ×2 (05:56→09:46)
[2019-08-26] MEDS ORDERED: Lidocaine 1% 20 ML MDV INJECT ONE (06:22)
[2019-08-26] MEDS ORDERED: Potassium Chloride 20 MEQ Tab.ER PO ONE ×3 (06:40→11:00)
[2019-08-26] MEDS: Lidocaine 2% 60 ML, Alum Hydrox/Mag Hydrox/Simeth 360 ML PO SCH ×4 (07:19→10:55)
[2019-08-26] MEDS: Insulin Lispro 100 Unit/ML 3 ML KwikPen SUBCUT SCH (07:31)
--- NOTE | 2019-08-26 07:32 | PCM.SN.2 ---
- Free Text/Narrative Note: Time: 05:39 call from [address] [place] [address] O: am lab Potassium 2.8 A: Hypokalemia P: give IV Potassium 40 meq -divided into to bags of 20 meq Lab: recheck Potassium at 1300 and add Magnesium to am lab.
[2019-08-26] MEDS: Amylase/Lipase/Protease 12,000 Unit Cap.CR PO SCH (08:46)
[2019-08-26] MEDS: Apixaban 5 MG Tab PO SCH (08:46)
[2019-08-26] MEDS: Magnesium Oxide 400 MG Tab PO SCH (08:46)
[2019-08-26] MEDS: Lactobacillus Rhamnosus GG (Probiotic) Cap PO SCH (08:46)
[2019-08-26] MEDS: Metoclopramide 10 MG Tab PO SCH (08:47)
[2019-08-26] MEDS: Pantoprazole 40 MG Delayed-Release Granules 1 Packet PO SCH (08:47)
[2019-08-26] MEDS: cefTRIAXone 1 GM in Sodium Chloride 0.9% 50 ML IV SCH (09:00)
--- NOTE | 2019-08-26 09:27 | PCM.DCSUM1 ---
Discharge Summary - Hospital Course Brief History: Ms. Harrell is a 69-year-old woman who was admitted through the emergency department with severe weakness and fever secondary to central line infection and septic shock - Discharge Data Discharge Date: 08/26/19 Discharge Disposition: Home, Self-Care 01 Condition: Fair - Referral to Home Health Primary Care Physician: Jean Browne MD - Discharge Diagnosis/Problem(s) (1) Central venous line infection SNOMED Code(s): 524850016 ICD Code: T80.219A - UNSP INFECTION DUE TO CENTRAL VENOUS CATHETER, INIT ENCNTR Status: Acute Current Visit: Yes (2) Septic shock SNOMED Code(s): 59066348 ICD Code: A41.9 - SEPSIS, UNSPECIFIED ORGANISM; R65.21 - SEVERE SEPSIS WITH SEPTIC SHOCK Status: Acute Current Visit: Yes (3) Pancreatic cancer SNOMED Code(s): 266397589 ICD Code: C25.9 - MALIGNANT NEOPLASM OF PANCREAS, UNSPECIFIED Status: Chronic Current Visit: Yes (4) COPD (chronic obstructive pulmonary disease) SNOMED Code(s): 39586586 ICD Code: J44.9 - CHRONIC OBSTRUCTIVE PULMONARY DISEASE, UNSPECIFIED Status : Chronic Current Visit: Yes - Patient Summary/Data Consults: Consultations 08/22/19 15:19 Consult to Physician [CONS] Routine Consulting Provider: Sam Comer Call Completed to Consulting Physician: Yes Reason for Consult: Esophageal ulcers, infected port 08/24/19 09:11 Consult to PICC Team [CONS] Routine Comment: Physician Instructions: 08/24/19 12:19 PT Evaluation and Treatment [CONS] Routine Please Evaluate and Treat. PT Reason for Consult: Strengthening Pending Discharge: Yes Discharge Disposition: Home w Home Health Special Instructions: needs home walker This query below is only for informational purposes and is not editable. Admission Diagnosis/Problem: Septic shock Hospital Course: Ms. Harrell is a 68-year-old woman who was admitted through the emergency department with septic shock secondary to unidentified infection. She has a known history of metastatic pancreatic carcinoma and received her last dose of chemotherapy 3 weeks ago. She has been suffering with esophageal ulcers and has been unable to eat or drink much of anything over the past few months. She has become progressively more weak over the last month and over the last few days has had 2 falls where she was unable to get up. Because of her extreme weakness she was brought into the emergency department for further evaluation today. She has marked elevation in lactic acid level as well as procalcitonin. White blood cell count is significantly elevated and she has had significant hypotension while in the emergency department. Blood cultures have been obtained although we were unable to obtain cultures from her port as we were unable to draw blood from it. She has been given vigorous IV fluid replacement per sepsis protocol and despite this remains hypotensive. She has been started on IV norepinephrine in the emergency department and has been given a dose of Solu-Cortef. Broad-spectrum IV antibiotic therapy has been initiated; with vancomycin, Zosyn, and metronidazole. CT scan of the chest abdomen and pelvis was obtained, there are no obvious pulmonary infiltrates. Scan of the abdomen shows evidence of some thickening of the colon in the descending and sigmoid sections. She has had no diarrhea or bloody stools. There was evidence of mass at the pancreatic head with pancreatic ductal dilatation as well as metastatic disease to the liver. Denies significant abdominal pain or even much in the way of nausea. Admission she was continued on broad-spectrum IV antibiotic therapy as well as IV norepinephrine. Mcmahon catheter was placed to closely monitor urine output and over the next few days her urine output was fairly minimal. Renal function stabilized and then began to improve prior to discharge. White blood cell count was markedly elevated and had almost come down to normal range by the time of discharge. Blood pressure stabilized with use of norepinephrine and she was slowly tapered off of this over a period of a few days of hospitalization. She was seen and evaluated by Dr. Comer, her left- sided port was removed as this was felt to be the most likely source of her infection. Blood cultures did grow out alpha strep out of all 4 bottles and she was transitioned to IV antibiotic therapy with ceftriaxone. She initially decided that she wanted to be DNR/DNI but is she felt better during hospitalization requested that she be returned to full code. We did attempt to facilitate discussion concerning CODE STATUS and advanced directive with the grooving machine operator service but were unable to do this during the week. She is planning on further considering options for management and will discuss them when she sees Dr. Browne for follow-up. She is strongly considering stopping chemotherapy and pursuing a comfort care only option with possible hospice admission. Potassium level was found to be low prior to discharge and was replaced orally. We will asked that a BMP is obtained when she sees Dr. Browne for follow-up appointment. Activity will be as tolerated. Eating slowly improved during hospitalization. At the time of port removal Dr. Comer did perform an EGD and noted that ulcers were healing but remained a significant problem. There was felt to be some evidence of fungal overgrowth and she was started on oral nystatin swish and swallow 4 times daily which will be continued on an outpatient basis. She will receive an additional 5 days of IV antibiotic therapy with ceftriaxone, midline pack was placed prior to discharge and should be removed after she is completed her course of ceftriaxone. Activity will be as tolerated and she will remain on a soft diet until her swallowing improves. - Patient Instructions Diet: Usual Diet as Tolerated Activity: As Tolerated Other/Special Instructions: Please schedule follow-up appointment with primary care provider within 1 week. Please arrange for an additional 5 days of ceftriaxone 1 g IV daily. - Discharge Plan *PRESCRIPTION DRUG MONITORING PROGRAM REVIEWED*: Not Applicable *COPY OF PRESCRIPTION DRUG MONITORING REPORT IN PATIENT IMANI: Not Applicable Prescriptions/Med Rec: Lactobacillus Rhamnosus GG [Culturelle] 1 cap PO BID #60 cap Nystatin [Mycostatin] 5 ml PO QID #140 ml Home Medications: Home Meds Irinotecan HCl 500 mg IV ASDIRECTED 01/31/19 [History] Leucovorin Calcium 500 mg IJ ASDIRECTED 01/31/19 [History] Loperamide [Imodium AD] 2 mg PO ASDIRECTED 01/31/19 [History] Oxaliplatin [Eloxatin] 50 mg IV ASDIRECTED 01/31/19 [History] Prochlorperazine Maleate [Compazine] 10 mg PO QID PRN 01/31/19 [History] Apixaban [Eliquis] 5 mg PO BID 08/21/19 [History] Fluorouracil 5-Fu 1 dose IV ASDIRECTED 08/21/19 [History] Lipase/Protease/Amylase [Enzadyne Capsule] 1 each PO TID 08/21/19 [History] Metoclopramide HCl 5 mg PO TID 08/21/19 [History] Omeprazole [First-Omeprazole] 20 mg PO BID 08/21/19 [History] Pantoprazole Sodium [Protonix] 40 mg PO BID 08/21/19 [History] Sucralfate 10 ml PO QID 08/21/19 [History] dexAMETHasone [Dexamethasone] 8 mg PO ASDIRECTED 08/21/19 [History] oxyCODONE 5 mg PO Q4HR PRN 08/21/19 [History] Lactobacillus Rhamnosus GG [Culturelle] 1 cap PO BID #60 cap 08/26/19 [Rx] Nystatin [Mycostatin] 5 ml PO QID #140 ml 08/26/19 [Rx] cefTRIAXone [Rocephin] 1 gm IV Q24H vial 08/26/19 [Rx] Referrals: Jean Browne MD [Primary Care Provider] - 08/29/19 11:00 am (Please arrive 15 minutes early to register for your appointment.) - Discharge Summary/Plan Comment DC Time >30 min.: No - Patient Data Vitals - Most Recent: Last Vital Signs Temp 96.1 F L 08/26/19 07:23 Pulse 86 08/26/19 07:23 Resp 16 08/26/19 07:23 BP 106/71 08/26/19 07:23 Pulse Ox 95 08/26/19 07:23 Weight - Most Recent: 120 lb 9.6 oz I&O - Last 24 hours: Intake & Output 08/25/19 08/26/19 08/26/19 22:59 06:59 14:59 Intake Total 240 220 Balance 240 220 Lab Results - Last 24 hrs: Laboratory Results - last 24 hr 08/26/19 08/26/19 08/26/19 Range/Units 04:39 04:39 04:39 WBC 13.0 H (4.5-11.0) K/uL RBC 2.98 L (3.30-5.50) M/uL Hgb 10.0 L (12.0-15.0) g/dL Hct 30.5 L (36.0-48.0) % MCV 102 H (80-98) fL MCH 34 H (27-31) pg MCHC 33 (32-36) % Plt Count 84 L (150-400) K/uL Neut % (Auto) 80 H (36-66) % Lymph % (Auto) 11 L (24-44) % [place] % (Auto) 9 H (2-6) % Eos % (Auto) 0 L (2-4) % Baso % (Auto) 0 (0-1) % Sodium 139 L (140-148) mmol/L Potassium 2.8 L* (3.6-5.2) mmol/L Chloride 103 (100-108) mmol/L Carbon Dioxide 27 (21-32) mmol/L Anion Gap 11.8 (5.0-14.0) mmol/L BUN 37 H (7-18) mg/dL Creatinine 1.5 H (0.6-1.0) mg/dL Est Cr Clr Drug Dosing 28.00 mL/min Estimated GFR (MDRD) 34 L (>60) Glucose 79 (74-106) mg/dL Calcium 7.5 L (8.5-10.1) mg/dL Magnesium 2.1 (1.8-2.4) mg/dL KAYKAY Results - Last 24 hrs: Microbiology 08/24/19 12:08 Gram Stain - Final Esophageal [place] Respiratory Culture - Preliminary 08/24/19 11:34 Gram Stain - Final Catheter Site - Other Wound Culture - Preliminary NO GROWTH AFTER 2 DAYS Anaerobic Culture - Preliminary NO GROWTH AFTER 2 DAYS 08/24/19 11:30 Gram Stain - Final Catheter Site - Other Wound Culture - Preliminary NO GROWTH AFTER 2 DAYS Anaerobic Culture - Preliminary NO GROWTH AFTER 2 DAYS 08/24/19 12:08 ELVA Preparation - Final Other - Esophagus Med Orders - Current: Current Medications Acetaminophen (Tylenol) 650 mg PO Q4H PRN PRN Reason: Pain (Mild 1-3)/fever Lipase/Protease/Amylase (Creon Dr 12,000 Units) 2 cap PO TID [facility] Last Admin: 08/26/19 08:46 Dose: 2 cap Apixaban (Eliquis) 5 mg PO BID [facility] Last Admin: 08/26/19 08:46 Dose: 5 mg Lidocaine HCl 60 ml/ Al (Hydroxide/Mg Hydroxide 360 ml) 0 ml PO TIDAC [facility] Last Admin: 08/26/19 07:19 Dose: Not Given Lidocaine HCl 60 ml/ Al (Hydroxide/Mg Hydroxide 360 ml) 0 ml PO ASDIRECTED PRN PRN Reason: PAIN Last Admin: 08/26/19 07:13 Dose: 30 ml Dextrose (Glutose 15) 15 gm PO ONETIME PRN PRN Reason: Hypoglycemia Dextrose/Water (Dextrose 50% In Water) 50 ml IV ONETIME PRN PRN Reason: Hypoglycemia Ceftriaxone Sodium 1 gm/ (Sodium Chloride) 50 mls @ 100 mls/hr IV Q24H [facility] Last Admin: 08/26/19 09:00 Dose: 100 mls/hr Insulin Human Lispro (Humalog) 0 unit SUBCUT QIDACANDBED [facility]; Protocol Last Admin: 08/26/19 07:31 Dose: Not Given Lactobacillus Rhamnosus (Culturelle) 1 cap PO BID [facility] Last Admin: 08/26/19 08:46 Dose: 1 cap Lidocaine HCl (Xylocaine 2% Viscous) 15 ml MUCMEM ASDIRECTED PRN PRN Reason: MUCOUS MEMBRANE Last Admin: 08/22/19 10:00 Dose: 15 ml Magnesium Oxide (Magnesium Oxide) 400 mg PO BID [facility] Last Admin: 08/26/19 08:46 Dose: 400 mg Melatonin (Melatonin) 9 mg PO BEDTIME [facility] Last Admin: 08/26/19 00:57 Dose: Not Given Metoclopramide HCl (Reglan) 5 mg PO TID [facility] Last Admin: 08/26/19 08:47 Dose: 5 mg Nystatin (Mycostatin) 5 ml PO QID [facility] Last Admin: 08/26/19 05:56 Dose: 5 ml Ondansetron HCl (Zofran) 4 mg IV Q4H PRN PRN Reason: Nausea/Vomiting Oxycodone HCl (Oxycodone) 5 mg PO Q4H PRN PRN Reason: Pain Last Admin: 08/25/19 16:02 Dose: 5 mg Pantoprazole Sodium (Protonix Granules) 40 mg PO BID [facility] Last Admin: 08/26/19 08:47 Dose: 40 mg Polyethylene Glycol (Miralax) 17 gm PO DAILY PRN PRN Reason: Constipation Last Admin: 08/23/19 13:36 Dose: 17 gm Potassium Chloride (Klor-Con M20) 40 meq PO ONETIME ONE Stop: 08/26/19 11:01 Sucralfate (Carafate) 1 gm PO QID [facility] Last Admin: 08/26/19 05:56 Dose: 1 gm Discontinued Medications Bupivacaine HCl (Marcaine 0.5%) Confirm Administered Dose 50 ml .ROUTE .STK-MED ONE Stop: 08/24/19 07:12 Last Admin: 08/24/19 11:30 Dose: 10 ml Lidocaine HCl 60 ml/ Al (Hydroxide/Mg Hydroxide 360 ml) 0 ml PO ASDIRECTED PRN PRN Reason: PAIN Last Admin: 08/25/19 08:26 Dose: 30 ml Fentanyl (Sublimaze) Confirm Administered Dose 100 mcg .ROUTE .STK-MED ONE Stop: 08/24/19 10:51 Hydrocortisone Sodium Succinate (Solu-Cortef) 100 mg IVPUSH ONETIME ONE Stop: 08/21/19 16:51 Last Admin: 08/21/19 17:02 Dose: 100 mg Hydrocortisone Sodium Succinate (Solu-Cortef) 100 mg IVPUSH Q8H [facility] Last Admin: 08/23/19 01:04 Dose: 100 mg Hydromorphone HCl (Dilaudid) 1 mg IVPUSH ONETIME ONE Stop: 08/21/19 13:51 Last Admin: 08/21/19 14:19 Dose: 1 mg Lactated Ringer's (Ringers, Lactated) 1,000 mls @ 999 mls/hr IV ASDIRECTED [facility] Last Admin: 08/21/19 14:18 Dose: 999 mls/hr Potassium Chloride 20 meq/ (Premix) 100 mls @ 50 mls/hr IV ONETIME ONE Stop: 08/21/19 16:06 Last Admin: 08/21/19 14:26 Dose: 50 mls/hr Piperacillin/Tazobactam/ (Dextrose 4.5 gm/ Premix) 100 mls @ 200 mls/hr IV STAT ONE Stop: 08/21/19 15:29 Last Admin: 08/21/19 15:16 Dose: 200 mls/hr Vancomycin HCl 1 gm/ Sodium (Chloride) 250 mls @ 167 mls/hr IV STAT ONE Stop: 08/21/19 16:59 Last Admin: 08/21/19 15:46 Dose: 167 mls/hr Lactated Ringer's (Ringers, Lactated) 1,000 mls @ 999 mls/hr IV BOLUS ONE Stop: 08/21/19 16:18 Last Admin: 08/21/19 15:19 Dose: 999 mls/hr Norepinephrine Bitartrate 4 mg (/ Dextrose/Water) 250 mls @ 7.5 mls/hr IV TITRATE [facility]; Protocol Last Admin: 08/22/19 20:42 Dose: 5 mcg/min, 18.75 mls/hr Metronidazole 500 mg/ Premix 100 mls @ 100 mls/hr IV ONETIME ONE Stop: 08/21/19 17:59 Last Admin: 08/21/19 17:29 Dose: 100 mls/hr Lactated Ringer's (Ringers, Lactated) 1,000 mls @ 500 mls/hr IV ASDIRECTED [facility] Last Admin: 08/21/19 16:48 Dose: 500 mls/hr Lactated Ringer's (Ringers, Lactated) 1,000 mls @ 500 mls/hr IV ASDIRECTED [facility] Stop: 08/21/19 19:07 Last Admin: 08/21/19 18:42 Dose: 500 mls/hr Lactated Ringer's (Ringers, Lactated) 1,000 mls @ 125 mls/hr IV ASDIRECTED [facility] Last Admin: 08/22/19 05:29 Dose: 125 mls/hr Metronidazole 500 mg/ Premix 100 mls @ 100 mls/hr IV Q8H [facility] Last Admin: 08/23/19 09:01 Dose: 100 mls/hr Piperacillin/Tazobactam/ (Dextrose 2.25 gm/ Premix) 50 mls @ 100 mls/hr IV Q8H [facility] Last Admin: 08/24/19 05:31 Dose: 100 mls/hr Vancomycin HCl 1 gm/ Sodium (Chloride) 250 mls @ 167 mls/hr IV Q48H [facility] Potassium Chloride 40 meq/ (Premix) 0 mls @ 25 mls/hr IV ONETIME ONE Stop: 08/21/19 21:33 Last Admin: 08/21/19 22:11 Dose: Not Given Potassium Chloride (Kcl 40 Meq In Water 100 Ml) 100 mls @ 25 mls/hr IV Q4H [facility] Stop: 08/22/19 05:59 Last Admin: 08/22/19 02:05 Dose: 25 mls/hr Calcium Gluconate 2 gm/ Sodium (Chloride) 120 mls @ 100 mls/hr IV ONETIME ONE Stop: 08/22/19 11:11 Last Admin: 08/22/19 09:45 Dose: 100 mls/hr Calcium Gluconate 2 gm/ Sodium (Chloride) 120 mls @ 120 mls/hr IV ONETIME ONE Stop: 08/22/19 16:59 Last Admin: 08/22/19 16:17 Dose: 120 mls/hr Lactated Ringer's (Ringers, Lactated) 1,000 mls @ 25 mls/hr IV ASDIRECTED [facility] Last Admin: 08/23/19 05:34 Dose: 25 mls/hr Sodium Chloride (Normal Saline) 1,000 mls @ 125 mls/hr IV ASDIRECTED [facility] Lactated Ringer's (Ringers, Lactated) 1,000 mls @ 25 mls/hr IV ASDIRECTED [facility] Last Admin: 08/24/19 11:55 Dose: 25 mls/hr Calcium Gluconate 2 gm/ Sodium (Chloride) 120 mls @ 100 mls/hr IV ONETIME ONE Stop: 08/23/19 10:11 Last Admin: 08/23/19 09:18 Dose: 100 mls/hr Magnesium Sulfate 2 gm/ Premix 50 mls @ 25 mls/hr IV Q6H [facility] Stop: 08/24/19 05:59 Last Admin: 08/24/19 04:06 Dose: 25 mls/hr Piperacillin/Tazobactam/ (Dextrose 2.25 gm/ Premix) 50 mls @ 100 mls/hr IV Q6H [facility] Potassium Chloride 20 meq/ (Premix) 100 mls @ 50 mls/hr IV ONETIME ONE Stop: 08/26/19 07:33 Last Admin: 08/26/19 05:48 Dose: 50 mls/hr Potassium Chloride 20 meq/ (Premix) 100 mls @ 50 mls/hr IV ONETIME ONE Stop: 08/26/19 09:34 Insulin Human Lispro (Humalog) 0 unit SUBCUT QIDACANDBED [facility]; Protocol Last Admin: 08/23/19 13:16 Dose: 4 units Insulin Human Lispro (Humalog) 8 unit SUBCUT ONETIME ONE Stop: 08/22/19 18:16 Last Admin: 08/22/19 18:19 Dose: 8 units Insulin Human Lispro (Humalog) 0 unit SUBCUT QIDACANDBED [facility]; Protocol Insulin Human Lispro (Humalog) 12 unit SUBCUT ONETIME ONE Stop: 08/23/19 18:06 Last Admin: 08/23/19 18:23 Dose: 12 units Lidocaine HCl (Xylocaine-Mpf 1%) Confirm Administered Dose 5 ml .ROUTE .STK-MED ONE Stop: 08/26/19 06:18 Last Admin: 08/26/19 06:23 Dose: Not Given Lidocaine HCl (Xylocaine-Mpf 1%) 2 ml INJECT ONETIME ONE Stop: 08/26/19 06:31 Last Admin: 08/26/19 06:44 Dose: 2 ml Lidocaine/Epinephrine (Xylocaine 1% With Epinephrine 1:100,000) Confirm Administered Dose 50 ml .ROUTE .STK-MED ONE Stop: 08/24/19 07:12 Last Admin: 08/24/19 11:30 Dose: 10 ml Midazolam HCl (Versed 1 Mg/Ml) Confirm Administered Dose 2 mg .ROUTE .STK-MED ONE Stop: 08/24/19 10:51 Pantoprazole Sodium (Protonix Iv) 40 mg IV Q12H [facility] Last Admin: 08/23/19 05:31 Dose: 40 mg Potassium Chloride (Klor-Con M20) 40 meq PO ONETIME ONE Stop: 08/21/19 14:08 Last Admin: 08/21/19 14:27 Dose: 40 meq Potassium Chloride (Klor-Con M20) 40 meq PO ONETIME ONE Stop: 08/21/19 18:01 Last Admin: 08/21/19 18:09 Dose: 40 meq Potassium Chloride (Klor-Con M20) 40 meq PO ONETIME ONE Stop: 08/21/19 21:38 Last Admin: 08/21/19 21:56 Dose: 40 meq Potassium Chloride (Klor-Con M20) 40 meq PO ONETIME ONE Stop: 08/26/19 08:31 Last Admin: 08/26/19 08:45 Dose: 40 meq Potassium Chloride (Klor-Con M20) 40 meq PO ONETIME ONE Stop: 08/26/19 06:41 Last Admin: 08/26/19 07:14 Dose: 40 meq Propofol (Diprivan 20 Ml) Confirm Administered Dose 200 mg .ROUTE .STK-MED ONE Stop: 08/24/19 10:51 Sodium Chloride (Saline Flush) 10 ml FLUSH ASDIRECTED PRN PRN Reason: Keep Vein Open Last Admin: 08/21/19 14:34 Dose: 10 ml Vancomycin HCl (Vancomycin) 1 gm IV .PHARMACY TO DOSE [facility] Stop: 08/21/19 18:00 - Exam General: Reports: Alert, Oriented, Cooperative, Mild Distress Lungs: Reports: Clear to Auscultation, Normal Respiratory Effort Cardiovascular: Reports: Regular Rate, Regular Rhythm, No Murmurs GI/Abdominal Exam: Soft, Non-Tender, No Organomegaly, No Distention Extremities: Non-Tender, No Pedal Edema *Q Meaningful Use (DIS) - VTE *Q VTE Pharmacological Contraindications *Q: High INR Value
--- NOTE | 2019-08-29 13:57 | CONS ---
DATE OF SERVICE: 08/23/2019 REFERRING PHYSICIAN: CONSULTING PHYSICIAN: Sam Comer MD This is a 68-year-old female presenting with septic shock. She is being treated for stage IV pancreatic carcinoma with chemotherapy through a port. She was admitted on 08/21/2019. Her workup thus far has been negative for anything other than the likely port. She had blood cultures positive for both periphery and through the port with alpha strep. She remains on a norepinephrine drip of around 4 mcg/minute and otherwise appears to be increasingly stable. She also has been complaining for some time of quite a bit of discomfort with swallowing and had an upper endoscopy, which apparently showed quite a bit in the way of inflammation. She has been on both Protonix and Carafate without help. With the discussion of case yesterday, Dr. Cole felt we should probably empirically treat her for fungal esophagitis, and she was started on Mycostatin. Plan at this point will be to remove the port when she is clinically otherwise stable. We will make her n.p.o. after midnight tonight in anticipation that probably being the case tomorrow. She is uncertain whether she wants to continue with any chemotherapy. We will not put another port in tomorrow anyway providing the patient be treated with antibiotics for a period of time prior to insertion of a port and if she does not want to have anymore chemotherapy, then we would obviously not be placing a new port. We will decide tomorrow morning whether at that point she is stable enough to proceed with a port removal and upper endoscopy to evaluate the esophagus at that point as well. Sam Comer MD /[id number]
--- NOTE | 2019-08-29 14:14 | OR ---
DATE OF PROCEDURE: 08/24/2019 SURGEON: Sam Comer MD PREOPERATIVE DIAGNOSES: 1. Probable fungal esophagitis. 2. Probable port site infection. POSTOPERATIVE DIAGNOSES: 1. Severe but improving fungal esophagitis. 2. Probable port site infection. OPERATIVE PROCEDURES: 1. Esophagogastroduodenoscopy with aspiration of esophageal contents for fungal stains and cultures ([id number]). 2. Removal of Bard port via left subclavian vein position ([id number]). ANESTHESIA: Local plus IV sedation. INDICATION FOR PROCEDURE: This is a 68-year-old female who has been undergoing chemotherapy for advanced pancreatic carcinoma, presenting with septic shock. The only workup that has been positive appears to be related to the port at this point, and this is to be removed. She has also been noted to have quite severe esophagitis on recent upper endoscopy at [place] and she continues to have quite a bit of dysphagia and discomfort when swallowing, and plan is to proceed with followup endoscopy to evaluate that issue as well as removal of the port. Potential risks including bleeding and infection were reviewed, and the patient wishes to proceed. DETAILS OF PROCEDURE: The patient was taken to the operating room, placed in initially left lateral decubitus position. IV sedation was administered, after which the upper GI endoscope was passed orally through the length of the esophagus into the stomach with retroflexion view of the fundus, and thereafter through the pyloric channel and into the proximal duodenum. The patient was noted to have quite severe but improving fungal esophagitis based on the photos she had brought from [place]. The esophageal contents were irrigated and evacuated and sent for fungal stain and culture. Otherwise, the stomach was relatively unremarkable. The pyloric channel and proximal duodenum appeared to be quite narrowed, likely related to the malignancy in that area, but otherwise were unremarkable. At this point, the scope was withdrawn and the procedure then concluded. The patient was now placed in a supine position. The site around the left subclavian vein port was prepped and draped and anesthetized with 1% lidocaine. An incision was then made over the port and this was freed up from the surrounding capsule, and the port along with the catheter were then excised. The port with catheter exited. The port was closed off with a pursestring stitch of 3-0 Vicryl stitch. Cultures were obtained from the port itself, although there was no obvious purulence in the port cavity. The catheter tip was also then separately cultured. The incision was closed with some 3-0 and 4-0 Vicryl stitch deep and a 4-0 Vicryl subcuticular stitch. Dressing was applied. The patient was taken to the recovery room in satisfactory condition. Sam Comer MD /[id number]
== END 2019-08-26 12:35 | disposition home or self-care (01) | DRG 270 ==
LOC: JP.ED 13:01 → JP.ICU 16:35 → JP.MS 08-25 14:22
PROVIDERS: ADMIT Hospitalist; ATTEND Hospitalist
PROC: 02HV33Z Insertion of Infusion Device into Superior Vena Cava, Percutaneous Approach (ICD-10-PCS; principal; 2019-08-24)
PROC: 02PY03Z Removal of Infusion Device from Great Vessel, Open Approach (ICD-10-PCS; 2019-08-24)
PROC: 0D958ZZ Drainage of Esophagus, Via Natural or Artificial Opening Endoscopic (ICD-10-PCS; 2019-08-24)
PROC: 0JPT0WZ Removal of Totally Implantable Vascular Access Device from Trunk Subcutaneous Tissue and Fascia, Open Approach (ICD-10-PCS; 2019-08-24)
DX: T80.211A Bloodstream infection due to central venous catheter, initial encounter (principal); C25.9 Malignant neoplasm of pancreas, unspecified; F17.200 Nicotine dependence, unspecified, uncomplicated; A41.9 Sepsis, unspecified organism; R65.21 Severe sepsis with septic shock; C25.0 Malignant neoplasm of head of pancreas; N17.9 Acute kidney failure, unspecified; C78.7 Secondary malignant neoplasm of liver and intrahepatic bile duct; B48.8 Other specified mycoses; K20.8 Other esophagitis; Z66 Do not resuscitate; Y84.8 Other medical procedures as the cause of abnormal reaction of the patient, or of later complication, without mention of misadventure at the time of the procedure; J44.9 Chronic obstructive pulmonary disease, unspecified; G89.29 Other chronic pain; M54.9 Dorsalgia, unspecified; E83.42 Hypomagnesemia; F17.210 Nicotine dependence, cigarettes, uncomplicated; E87.6 Hypokalemia; T45.1X5A Adverse effect of antineoplastic and immunosuppressive drugs, initial encounter; Z79.899 Other long term (current) drug therapy; Z79.01 Long term (current) use of anticoagulants
CPT/HCPCS: 36415; 71250; 74176; 80053; 83605; 84145; 84484; 85025; 86140; 87040 ×2; 87077; 96365; 96366; 96368; 96375; 99285 ×2; A9270; J1170; J2543; J3370; J3480; J7050; J7120 ×2; 51701; 51702; 80048; 81001; 82330; 82962; 83735; 84132; 87070; 87075; 87102; 87205; 87220; 88300; 97162-GP; 97530-GP; C1751; C9113; J0610; J0696; J1720; J1815; J2001; J2250; J2704; J3010; J3475; J3490; J7060